=== PATIENT | female | born 1955 | race Hispanic/Latino ===

== ENCOUNTER 2018-08-29 18:12 | Emergency (ER) | payer OTHER ==
[2018-08-29 19:00] LABS: Absolute Lymphocytes (CBC) 4.8 K/uL (0.7-4.9); Absolute Monocytes 0.9 K/uL (0.1-1.3); Absolute Neutrophil 5.6 K/uL (1.8-8.0); Basophils % 0.5 % (0-1.3); Eosinophils % 0.6 % (0-4.4); Hematocrit 36.9 % (36.0-45.0); MPV 8.9 fL (7.6-11.3); Monocytes % 7.5 % (3.3-12.3); RBC Red Blood Cell Count 4.07 M/uL (3.86-4.86)
[2018-08-29 19:19] LABS: Protime INR 1.04
[2018-08-29 19:30] LABS: ALT/SGPT 24 U/L (12-78); AST/SGOT 14 U/L (15-37); Albumin 3.6 g/dL (3.4-5.0); Alkaline Phosphatase 84 U/L (45-117); BUN Blood Urea Nitrogen 17 mg/dL (7-18); Bicarbonate 24 mmol/L (21-32); Bilirubin Direct < 0.1 mg/dL (0-0.2); Bilirubin Total 0.2 mg/dL (0.2-1.0); Glucose Level 120 mg/dL (74-106); Magnesium 2.2 mg/dL (1.8-2.4); NT PRO-BNP 11 pg/mL (<125); Potassium 3.6 mmol/L (3.5-5.1); Protein, Total 7.5 g/dL (6.4-8.2); Sodium Level 141 mmol/L (136-145); Troponin (Emerg Dept Use Only) < 0.02 ng/mL (0.0-0.045)
[2018-08-29] MEDS ORDERED: KETOROLAC 30 MG/ML INJ ONE (21:04)
--- NOTE | 2018-08-29 21:38 | ER ---
Nurse's Notes [facility] Name: Charisse Tarango Age: 63 yrs Sex: Female : 1955 Arrival Date: 08/29/2018 Time: 18:16 Bed 24 Private MD: Diagnosis: Cough;Other chest pain Presentation: 08/29 18:31 Presenting complaint: Patient states: being treated for Bronchitis for the last week, tl3 just finished Zithromax. Chest pain on the right with deep breathing and frequent coughs. Transition of care: patient was not received from another setting of care. Onset of symptoms was August 2018. Risk Assessment: Do you want to hurt yourself or someone else? Patient reports no desire to harm self or others. Initial Sepsis Screen: Does the patient meet any 2 criteria? No. Patient's initial sepsis screen is negative. Does the patient have a suspected source of infection? No. Patient's initial sepsis screen is negative. Care prior to arrival: None. 18:31 Method Of Arrival: Ambulatory tl3 18:31 Acuity: SANDRA 3 tl3 Triage Assessment: 18:36 General: Appears in no apparent distress. comfortable, well groomed, well developed, tl3 well nourished, Behavior is calm, cooperative, appropriate for age. Pain: Complains of pain in anterior aspect of right upper chest and right breast. EENT: No signs and/or symptoms were reported regarding the EENT system. Neuro: Level of Consciousness is awake, alert, obeys commands, Oriented to person, place, time, situation, Appropriate for age. Cardiovascular: No deficits noted. Patient's skin is warm and dry. Rhythm is sinus rhythm. Respiratory: Airway is patent Respiratory effort is even, unlabored, Respiratory pattern is regular, symmetrical. GI: No deficits noted. : No deficits noted. Derm: No deficits noted. Musculoskeletal: No deficits noted. Historical: - Allergies: 18:36 PENICILLINS; tl3 18:36 Codeine; tl3 - Home Meds: 18:36 Calcium Antacid oral oral [Active]; Lisinopril Oral 1 tab once daily [Active]; tl3 fluticasone topical topical [Active]; fluticasone 50 mcg/actuation nasal spsn 2 sprays once daily [Active]; cetirizine 10 mg oral tab once daily [Active]; azelastine 0.15 % (205.5 mcg) nasal spry 1 spray 2 times per day [Active]; Singulair 10 mg Oral tab 1 tab once daily [Active]; - PMHx: 18:36 Hypertension; tl3 - Immunization history:: Adult Immunizations up to date. - Social history:: Smoking status: Patient/guardian denies using tobacco, never smoked. - Ebola Screening: : No symptoms or risks identified at this time. Screenin:39 Abuse screen: Denies threats or abuse. Nutritional screening: No deficits noted. tl3 Tuberculosis screening: No symptoms or risk factors identified. Fall Risk None identified. Assessment: 18:39 Reassessment: No changes from previously documented assessment. tl3 22:23 Reassessment: Patient appears in no apparent distress at this time. Patient and/or tl3 family updated on plan of care and expected duration. Pain level reassessed. Patient is alert, oriented x 3, equal unlabored respirations, skin warm/dry/pink. 22:29 Pain: Pain does not radiate. Pain began gradually. tl3 Vital Signs: 18:36 BP 155 / 75; Pulse 73; Resp 16; Temp 98.3(O); Pulse Ox 100% on R/A; tl3 22:23 BP 134 / 65; Pulse 66; Resp 18; Pulse Ox 100% on R/A; tl3 ED Course: 18:16 Patient arrived in ED. mr 18:21 Colt Hernandez PA is PHCP. cp 18:21 Nicola Ervin MD is Attending Physician. cp 18:21 Billie Del Toro, RN is Primary Nurse. tl3 18:32 Triage completed. tl3 18:36 Arm band placed on right wrist. tl3 18:39 No provider procedures requiring assistance completed. Patient maintains SpO2 tl3 saturation greater than 95% on room air. 18:56 Basic Metabolic Panel Sent. tl3 18:56 D-Dimer Sent. tl3 18:56 CBC with Diff Sent. tl3 18:56 LFT's Sent. tl3 18:56 Magnesium Sent. tl3 18:56 NT PRO-BNP Sent. tl3 18:56 PT-INR Sent. tl3 18:56 Troponin (emerg Dept Use Only) Sent. tl3 18:57 Patient has correct armband on for positive identification. Placed in gown. Bed in low tl3 position. Call light in reach. Side rails up X 1. telemetry monitor on. Pulse ox on. NIBP on. Warm blanket given. 18:57 Initial lab(s) drawn, by me, sent to lab. EKG done, by ED staff. Inserted saline lock: tl3 20 gauge in left forearm, using aseptic technique. Blood collected. 19:16 Alok Bruce MD is Attending Physician. cp 22:20 XRAY Chest Pa And Lat (2 Views) Sent. tl3 22:23 IV discontinued, intact, bleeding controlled, No redness/swelling at site. Pressure tl3 dressing applied. Administered Medications: 21:00 Drug: TORadol 30 mg Route: IVP; Site: right antecubital; tl3 22:29 Follow up: Response: No adverse reaction tl3 22:21 Not Given (pt discharged): Tussionex Pennkinetic ER 5 ml PO once tl3 Outcome: 21:38 Discharge ordered by MD. cp 22:23 Discharged to home ambulatory. tl3 22:23 Condition: stable 22:23 Discharge instructions given to patient, Instructed on discharge instructions, follow up and referral plans. Demonstrated understanding of instructions, follow-up care, medications, Prescriptions given X 3. 22:29 Patient left the ED. tl3 Signatures: Lisandra Hall Corey, PA PA cp Lowrey, Tammy, RN RN tl3
--- NOTE | 2018-08-29 21:39 | EDPHYS ---
Physician Documentation [facility] Name: Charisse Tarango Age: 63 yrs Sex: Female : 1955 Arrival Date: 08/29/2018 Time: 18:16 Bed 24 Private MD: ED Physician Alok Bruce HPI: 08/29 18:40 This 63 yrs old Female presents to ER via Ambulatory with complaints of Chest cp Pain. 18:40 The patient or guardian reports cough. cp 18:40 Onset: The symptoms/episode began/occurred earlier this month. Severity of symptoms: in cp the emergency department the symptoms are unchanged. Associated signs and symptoms: Pertinent positives: chest pain, with cough, with movement, Pertinent negatives: diarrhea, sore throat, vomiting. Patient reports recently finishing RX for Zithromax and medrol dose bryanna. Historical: - Allergies: 18:36 PENICILLINS; tl3 18:36 Codeine; tl3 - Home Meds: 18:36 Calcium Antacid oral oral [Active]; Lisinopril Oral 1 tab once daily [Active]; tl3 fluticasone topical topical [Active]; fluticasone 50 mcg/actuation nasal spsn 2 sprays once daily [Active]; cetirizine 10 mg oral tab once daily [Active]; azelastine 0.15 % (205.5 mcg) nasal spry 1 spray 2 times per day [Active]; Singulair 10 mg Oral tab 1 tab once daily [Active]; - PMHx: 18:36 Hypertension; tl3 - Immunization history:: Adult Immunizations up to date. - Social history:: Smoking status: Patient/guardian denies using tobacco, never smoked. - Ebola Screening: : No symptoms or risks identified at this time. ROS: 18:45 Constitutional: Negative for body aches, chills, fever, poor PO intake. cp 18:45 Eyes: Negative for injury, pain, redness, and discharge. cp 18:45 ENT: Negative for drainage from ear(s), ear pain, sore throat, difficulty swallowing, difficulty handling secretions. 18:45 Cardiovascular: Positive for chest pain, with cough, with movement, Negative for edema, palpitations. 18:45 Respiratory: Positive for cough, Negative for shortness of breath, wheezing. 18:45 Abdomen/GI: Negative for abdominal pain, nausea, vomiting, and diarrhea, black/tarry stool, rectal bleeding. 18:45 Back: Positive for radiated pain, of the right scapular area and right subscapular area, Negative for injury or acute deformity, decreased range of motion. 18:45 : Negative for urinary symptoms. 18:45 Skin: Negative for cellulitis, rash. 18:45 Neuro: Negative for altered mental status, dizziness, headache, syncope, near syncope, weakness. 18:45 All other systems are negative. Exam: 18:30 ECG was reviewed by the Attending Physician. cp 18:50 Constitutional: The patient appears in no acute distress, alert, awake, comfortable, cp non-diaphoretic, non-toxic, well developed, well nourished. 18:50 Head/Face: Normocephalic, atraumatic. cp 18:50 Eyes: Pupils equal round and reactive to light, extra-ocular motions intact. Lids and cp lashes normal. Conjunctiva and sclera are non-icteric and not injected. Cornea within normal limits. Periorbital areas with no swelling, redness, or edema. ENT: Nares patent. No nasal discharge, no septal abnormalities noted. Tympanic membranes are normal and external auditory canals are clear. Oropharynx with no redness, swelling, or masses, exudates, or evidence of obstruction, uvula midline. Mucous membranes moist. Neck: Trachea midline, no thyromegaly or masses palpated, and no cervical lymphadenopathy. Supple, full range of motion without nuchal rigidity, or vertebral point tenderness. No Meningismus. 18:50 Chest/axilla: Inspection: normal, Palpation: crepitus, is not appreciated, tenderness, that is mild, of the anterior aspect of right upper chest, that partially reproduces the patient's complaints. 18:50 Cardiovascular: Rate: normal, Rhythm: regular, Heart sounds: murmur, not appreciated, rub, not appreciated, gallop, not appreciated, Edema: is not appreciated, JVD: is not appreciated. 18:50 Respiratory: the patient does not display signs of respiratory distress, Respirations: normal, no use of accessory muscles, no retractions, no splinting, no tachypnea, labored breathing, is not present, Breath sounds: are clear throughout, no decreased breath sounds, no stridor, no wheezing. 18:50 Abdomen/GI: Inspection: abdomen appears normal, Bowel sounds: active, all quadrants, Palpation: abdomen is soft and non-tender, in all quadrants, rebound tenderness, is not appreciated, voluntary guarding, is not appreciated, involuntary guarding, is not appreciated. 18:50 Back: pain, that is mild, of the right scapular area and right subscapular area, ROM is normal. 18:50 Skin: cellulitis, is not appreciated, no rash present. 18:50 Neuro: Orientation: to person, place \T\ time. Mentation: is normal, Cerebellar function: is grossly normal, Motor: moves all fours, strength is normal, Sensation: is normal. Vital Signs: 18:36 BP 155 / 75; Pulse 73; Resp 16; Temp 98.3(O); Pulse Ox 100% on R/A; tl3 22:23 BP 134 / 65; Pulse 66; Resp 18; Pulse Ox 100% on R/A; tl3 MDM: 18:21 Patient medically screened. cp 19:00 Differential Diagnosis: Bronchitis Influenza Viral Syndrome Pneumonia Other acute OK, cp angina, pulmonary embolism. 21:37 Data reviewed: vital signs, nurses notes, lab test result(s), EKG, radiologic studies, cp plain films. 21:37 Test interpretation: by ED physician or midlevel provider: ECG, plain radiologic cp studies. Counseling: I had a detailed discussion with the patient and/or guardian regarding: the historical points, exam findings, and any diagnostic results supporting the discharge/admit diagnosis, lab results, radiology results, the need for outpatient follow up, a family practitioner, to return to the emergency department if symptoms worsen or persist or if there are any questions or concerns that arise at home. Special discussion: Based on the patient's history, exam, and Dx evaluation, there is no indication for emergent intervention or inpatient Tx. It is understood by the patient/guardian that if the Sx's persist or worsen they need to return immediately for re-evaluation. 08/29 18:37 Order name: Basic Metabolic Panel cp 08/29 18:37 Order name: CBC with Diff cp 08/29 18:37 Order name: LFT's cp 08/29 18:37 Order name: Magnesium cp 08/29 18:37 Order name: NT PRO-BNP cp 08/29 18:37 Order name: PT-INR cp 08/29 18:37 Order name: Troponin (emerg Dept Use Only) cp 08/29 18:37 Order name: D-Dimer cp 08/29 19:07 Order name: CBC with Automated Diff; Complete Time: 19:44 EDMS 08/29 20:19 Interpretation: Normal except: WBC 11.4. cp 08/29 19:31 Order name: Basic Metabolic Panel; Complete Time: 19:44 EDMS 08/29 20:19 Interpretation: Normal except: CL 108; GLUC 120; GFR 67. cp 08/29 19:31 Order name: Liver (Hepatic) Function; Complete Time: 19:44 EDMS 20 20:20 Interpretation: Normal except: AST 14; GLOB 3.9; A/G 0.9. cp 08/29 19:31 Order name: Troponin (Emerg Dept Use Only); Complete Time: 19:44 EDMS 08/29 20:20 Interpretation: Within normal limits: TROPED < 0.02. cp 08/29 19:31 Order name: NT PRO-BNP; Complete Time: 19:44 EDMS 08/29 19:31 Order name: Magnesium; Complete Time: 19:44 EDMS 08/29 18:37 Order name: EKG; Complete Time: 18:39 cp 08/29 18:37 Order name: Cardiac monitoring; Complete Time: 18:40 cp 08/29 18:37 Order name: EKG - Nurse/Tech; Complete Time: 18:40 cp 08/29 18:37 Order name: IV Saline Lock; Complete Time: 18:57 cp 08/29 18:37 Order name: Labs collected and sent; Complete Time: 18:57 cp 08/29 18:37 Order name: O2 Per Protocol; Complete Time: 18:40 cp 08/29 18:37 Order name: O2 Sat Monitoring; Complete Time: 18:40 cp 08/29 20:04 Order name: Protime (+INR); Complete Time: 20:11 EDMS 08/29 20:04 Order name: D-Dimer; Complete Time: 20:11 EDMS 08/29 20:11 Order name: XRAY Chest Pa And Lat (2 Views) cp 08/29 22:08 Order name: RAD EDMS EC:30 Rate is 73 beats/min. Rhythm is regular. NC interval is normal. QRS interval is normal. cp QT interval is normal. Interpreted by me. Reviewed by me. Administered Medications: 21:00 Drug: TORadol 30 mg Route: IVP; Site: right antecubital; tl3 22:29 Follow up: Response: No adverse reaction tl3 22:21 Not Given (pt discharged): Tussionex Pennkinetic ER 5 ml PO once tl3 Disposition: 08/29/18 21:38 Discharged to Home. Impression: Cough, Other chest pain. - Condition is Stable. - Discharge Instructions: Nonspecific Chest Pain, Cough, Adult. - Prescriptions for Tessalon Perles 100 mg Oral Capsule - take 2 capsule by ORAL route every 8 hours As needed; 30 capsule. Prednisone 20 mg Oral Tablet - take 2 tablet by ORAL route once daily for 5 days; 10 tablet. Albuterol Sulfate 90 mcg/actuation - inhale 1-2 puff by INHALATION route every 4-6 hours; 1 Inhaler. - Medication Reconciliation Form, Thank You Letter, Antibiotic Education, Prescription Opioid Use form. - Follow up: Private Physician; When: 2 - 3 days; Reason: Recheck today's complaints. - Problem is new. - Symptoms have improved. Signatures: Dispatcher [employer] EDMS Colt Hernandez PA PA cp Lowrey, Tammy RN RN tl3 Corrections: (The following items were deleted from the chart) 22:24 08/28 18:50 Constitutional: The patient appears in no acute distress, alert, awake, cp non-diaphoretic, non-toxic, well developed, well nourished, cp 08/29 22:24 08/28 18:50 Head/Face: Normocephalic, atraumatic. Eyes: Pupils equal round and reactive cp to light, extra-ocular motions intact. Lids and lashes normal. Conjunctiva and sclera are non-icteric and not injected. Cornea within normal limits. Periorbital areas with no swelling, redness, or edema. ENT: Nares patent. No nasal discharge, no septal abnormalities noted. Tympanic membranes are normal and external auditory canals are clear. Oropharynx with no redness, swelling, or masses, exudates, or evidence of obstruction, uvula midline. Mucous membranes moist. Neck: Trachea midline, no thyromegaly or masses palpated, and no cervical lymphadenopathy. Supple, full range of motion without nuchal rigidity, or vertebral point tenderness. No Meningismus. cp 08/29 21:08/28 18:50 Chest/axilla: Inspection: normal, Palpation: crepitus, is not appreciated, cp tenderness, that is mild, of the anterior aspect of right upper chest, cp 08/29 22:08/28 18:50 Cardiovascular: Rate: normal, Rhythm: regular, Pulses: Pulses are 2+ in cp right radial artery and left radial artery. Edema: is not appreciated, JVD: is not appreciated, cp 08/29 21:08/28 18:50 Respiratory: the patient does not display signs of respiratory distress, cp Respirations: normal, no use of accessory muscles, no retractions, no splinting, no tachypnea, labored breathing, is not present, Breath sounds: bronchial sounds, are not appreciated, decreased breath sounds, are not appreciated, stridor, is not appreciated, wheezing: is not appreciated, cp 08/29 22:08/28 18:50 Abdomen/GI: Inspection: abdomen appears normal, Bowel sounds: active, all cp quadrants, Palpation: abdomen is soft and non-tender, in all quadrants, rebound tenderness, is not appreciated, involuntary guarding, is not appreciated, cp 08/29 21:08/28 18:50 Back: pain, that is mild, of the right scapular area and right subscapular cp area, cp 08/29 21:08/28 18:50 Skin: cellulitis, is not appreciated, no rash present. cp cp 08/29 21:08/28 18:50 Neuro: Orientation: to person, place \T\ time. Mentation: is normal, cp Cerebellar function: is grossly normal, Motor: moves all fours, strength is normal, Sensation: is normal, cp 08/29 21:08/28 18:50 Musculoskeletal/extremity: DVT Exam: No signs of deep vein thrombosis. cp 08/29 22:29 21:38 08/29/2018 21:38 Discharged to Home. Impression: Cough; Other chest pain. tl3 Condition is Stable. Forms are Medication Reconciliation Form, Thank You Letter, Antibiotic Education, Prescription Opioid Use. Follow up: Private Physician; When: 2 - 3 days; Reason: Recheck today's complaints. Problem is new. Symptoms have improved. cp
--- NOTE | 2018-08-29 22:07 | RAD REPORT ---
EXAM DESCRIPTION: RAD - Chest Pa And Lat (2 Views) - 08/29/2018 9:50 pm CLINICAL HISTORY: Bronchitis, chest pain COMPARISON: None. TECHNIQUE: PA and lateral views of the chest were obtained. FINDINGS: The lungs are fibrotic as a baseline. Right perihilar granuloma seen. No peripheral consol idation, mass or failure finding. Heart size is normal and central vasculature is within normal royal its. No pleural effusion or pneumothorax seen. No acute bony finding noted. No aortic abnormality. IMPRESSION: Prominent interstitial markings consistent with fibrosis. A minimal interstitial infiltr ate could be masked.
--- NOTE | 2018-08-30 11:46 | EKG ---
Test Date: 2018-08-29 Test Time: 18:23:12 [place]: MG MEASUREMENT RESULTS: Intervals: Rate: 73 MS: 124 QRSD: 84 QT: 388 QTc: 427 [place]: P: 60 MS: 124 QRS: 43 T: 61 INTERPRETIVE STATEMENTS: Normal sinus rhythm Normal ECG No previous ECG available for comparison Electronically Signed On 08-30-18 11:43:04 CERTIFIED WELDER by Manjit Pond
== END 2018-08-29 22:29 | disposition home or self-care (01) ==
LOC: ER 18:12
DX: R07.89 Other chest pain (principal); I10 Essential (primary) hypertension; Z88.0 Allergy status to penicillin; Z88.5 Allergy status to narcotic agent
CPT/HCPCS: 36415; 71046; 80048; 80076; 83735; 83880; 84484; 85025; 85379; 85610; 93005

== ENCOUNTER 2018-12-29 14:16 | Emergency (ER) | payer OTHER ==
--- NOTE | 2018-12-29 15:09 | RAD REPORT ---
EXAM DESCRIPTION: RAD - Chest Single View - 12/29/2018 2:54 pm CLINICAL HISTORY: CHEST PAIN Chest pain. COMPARISON: Chest Pa And Lat (2 Views) dated 08/29/2018 FINDINGS: Portable technique limits examination quality. The lungs are grossly clear. The heart is normal in size. No displaced fractures. IMPRESSION: No acute intrathoracic process suspected.
[2018-12-29 15:15] LABS: Absolute Lymphocytes (CBC) 2.3 K/uL (0.7-4.9); Absolute Monocytes 0.6 K/uL (0.1-1.3); Absolute Neutrophil 7.9 K/uL (1.8-8.0); Basophils % 0.4 % (0-1.3); Eosinophils % 0.4 % (0-4.4); Hematocrit 36.8 % (36.0-45.0); Lymphocytes % 20.9 % (15.3-44.8); Monocytes % 5.7 % (3.3-12.3); RBC Red Blood Cell Count 4.03 M/uL (3.86-4.86)
[2018-12-29 15:17] LABS: Protime INR 1.01
[2018-12-29 15:40] LABS: ALT/SGPT 23 U/L (12-78); AST/SGOT 18 U/L (15-37); Albumin 4.1 g/dL (3.4-5.0); Alkaline Phosphatase 97 U/L (45-117); BUN Blood Urea Nitrogen 12 mg/dL (7-18); Bicarbonate 26 mmol/L (21-32); Bilirubin Direct 0.1 mg/dL (0-0.2); Bilirubin Total 0.3 mg/dL (0.2-1.0); Glucose Level 105 mg/dL (74-106); Magnesium 2.5 mg/dL (1.8-2.4); NT PRO-BNP 43 pg/mL (<125); Potassium 3.7 mmol/L (3.5-5.1); Protein, Total 7.8 g/dL (6.4-8.2); Sodium Level 140 mmol/L (136-145); Troponin (Emerg Dept Use Only) < 0.02 ng/mL (0.0-0.045)
[2018-12-29] MEDS ORDERED: MORPHINE 4 MG/ML SYR ONE (15:51)
[2018-12-29] MEDS ORDERED: ONDANSETRON 4 MG/2 ML VIAL ONE (15:51)
--- NOTE | 2018-12-29 19:57 | EDPHYS ---
Physician Documentation [facility] Name: Charisse Tarango Age: 63 yrs Sex: Female : 1955 Arrival Date: 12/29/2018 Time: 14:21 Bed 5 Private MD: ED Physician Israel Flynn HPI: 12/29 15:03 This 63 yrs old Female presents to ER via Ambulatory with complaints of Arm pm1 Pain, Neck Problem. 15:03 The patient or guardian complains of pain, that is acute. The complaints affect the pm1 anterior aspect of left upper chest and left side of neck. Context: The problem was sustained at home, resulted from possibly working on laundry. Onset: The symptoms/episode began/occurred today, 1 hour prior to arrival. Treatment prior to arrival includes: no previous treatment. Modifying factors: The symptoms are alleviated by remaining still, the symptoms are aggravated by moving left arm and head. Associated signs and symptoms: Pertinent negatives: decreased range of motion, deformity, fever, numbness, swelling, tingling. Severity of symptoms: in the emergency department the symptoms are unchanged. The patient has not experienced similar symptoms in the past. The patient has not recently seen a physician. Historical: - Allergies: 14:32 Codeine; hb 14:32 PENICILLINS; hb - Home Meds: 14:32 azelastine 0.15 % (205.5 mcg) nasal spry 1 spray 2 times per day [Active]; Calcium hb Antacid Oral [Active]; fluticasone 50 mcg/actuation nasal spsn 2 sprays once daily [Active]; lisinopril Oral 1 tab once daily [Active]; Singulair 10 mg Oral tab 1 tab once daily [Active]; Omeprazole Oral [Active]; - PMHx: 14:32 Hypertension; hb - PSHx: 14:32 Hysterectomy; neck; hb - Immunization history:: Adult Immunizations up to date. - Social history:: Smoking status: Patient/guardian denies using tobacco. - Ebola Screening: : No symptoms or risks identified at this time. ROS: 15:03 Constitutional: Negative for fever, chills, and weight loss, Eyes: Negative for injury, pm1 pain, redness, and discharge, ENT: Negative for injury, pain, and discharge, Respiratory: Negative for shortness of breath, cough, wheezing, and pleuritic chest pain. 15:03 Abdomen/GI: Negative for abdominal pain, nausea, vomiting, diarrhea, and constipation, Back: Negative for injury and pain. 15:03 : Negative for injury, bleeding, discharge, and swelling, MS/Extremity: Negative for injury and deformity, Skin: Negative for injury, rash, and discoloration, Neuro: Negative for headache, weakness, numbness, tingling, and seizure. 15:03 Neck: Positive for tenderness, of the left trapezius. 15:03 Cardiovascular: Positive for chest pain, Negative for edema, orthopnea, palpitations. Exam: 19:00 Constitutional: This is a well developed, well nourished patient who is awake, alert, pm1 and in no acute distress. Head/Face: Normocephalic, atraumatic. Eyes: Pupils equal round and reactive to light, extra-ocular motions intact. Lids and lashes normal. Conjunctiva and sclera are non-icteric and not injected. Cornea within normal limits. Periorbital areas with no swelling, redness, or edema. ENT: Nares patent. No nasal discharge, no septal abnormalities noted. Tympanic membranes are normal and external auditory canals are clear. Oropharynx with no redness, swelling, or masses, exudates, or evidence of obstruction, uvula midline. Mucous membranes moist. 19:00 Cardiovascular: Regular rate and rhythm with a normal S1 and S2. No gallops, murmurs, or rubs. Normal PMI, no JVD. No pulse deficits. Respiratory: Lungs have equal breath sounds bilaterally, clear to auscultation and percussion. No rales, rhonchi or wheezes noted. No increased work of breathing, no retractions or nasal flaring. Abdomen/GI: Soft, non-tender, with normal bowel sounds. No distension or tympany. No guarding or rebound. No evidence of tenderness throughout. Back: No spinal tenderness. No costovertebral tenderness. Full range of motion. Skin: Warm, dry with normal turgor. Normal color with no rashes, no lesions, and no evidence of cellulitis. MS/ Extremity: Pulses equal, no cyanosis. Neurovascular intact. Full, normal range of motion. 19:00 Neck: External neck: tenderness, of the left trapezius, C-spine: vertebral tenderness, is not appreciated. 19:00 Chest/axilla: Inspection: normal, Palpation: tenderness, of the anterior aspect of left upper chest, that totally reproduces the patient's complaints, reproduced with movement to left arm. 19:00 Neuro: Orientation: is normal, Motor: is normal, moves all fours. Vital Signs: 14:31 BP 165 / 75; Pulse 88; Resp 16; Temp 97.4; Pulse Ox 96% on R/A; Weight 64.86 kg; Height hb 4 ft. 11 in. (149.86 cm); Pain 10/10; 16:07 BP 142 / 71; Pulse 70 AP; Resp 18; Pulse Ox 97% on R/A; ph 17:00 BP 127 / 59; Pulse 65; Resp 18; Pulse Ox 97% on R/A; Pain 6/10; ph 17:47 BP 131 / 63; Pulse 61; Resp 18; Pulse Ox 97% on R/A; ph 18:49 BP 146 / 72; Pulse 63; Resp 18; Pulse Ox 98% on R/A; ph 19:28 BP 128 / 63; Pulse 66; Resp 16; Temp 98.1; Pulse Ox 97% on R/A; Pain 0/10; ak1 20:10 BP 129 / 67; Pulse 64; Resp 16 S; Temp 98(O); Pulse Ox 97% on R/A; Pain 0/10; cc3 14:31 Body Mass Index 28.88 (64.86 kg, 149.86 cm) hb MDM: 14:39 Patient medically screened. pm1 19:54 Data reviewed: vital signs. Data interpreted: Pulse oximetry: on room air is 97 %. pm1 Interpretation: normal. 19:54 ED course: Normal ECG. Two negative troponin greater than 4 hours apart. Patient with pm1 left sided chest pain that is reproducible with palpation and movement of left arm. Will discharge the patient home to follow up with PCP. 19:54 Counseling: I had a detailed discussion with the patient and/or guardian regarding: the pm1 historical points, exam findings, and any diagnostic results supporting the discharge/admit diagnosis, lab results, radiology results, the need for outpatient follow up, to return to the emergency department if symptoms worsen or persist or if there are any questions or concerns that arise at home. 12/29 14:39 Order name: Basic Metabolic Panel; Complete Time: 15:50 pm1 12/29 14:39 Order name: CBC with Diff; Complete Time: 15:37 pm12/29 14:39 Order name: LFT's; Complete Time: 15:50 pm12/29 14:39 Order name: Magnesium; Complete Time: 15:50 pm12/29 14:39 Order name: NT PRO-BNP; Complete Time: 15:50 pm12/29 14:39 Order name: PT-INR; Complete Time: 15:37 pm12/29 14:39 Order name: Troponin (emerg Dept Use Only); Complete Time: 15:50 pm1 12/29 14:39 Order name: XRAY Chest (1 view); Complete Time: 15:37 pm12/29 14:39 Order name: EKG; Complete Time: 14:41 pm12/29 14:39 Order name: Cardiac monitoring; Complete Time: 15:24 pm12/29 14:39 Order name: EKG - Nurse/Tech; Complete Time: 15:24 pm12/29 19:15 Order name: Troponin (emerg Dept Use Only); Complete Time: 19:54 ak1 12/29 14:39 Order name: IV Saline Lock; Complete Time: 15:24 pm12/29 14:39 Order name: Labs collected and sent; Complete Time: 15:25 pm12/29 14:39 Order name: O2 Per Protocol; Complete Time: 15:25 pm12/29 14:39 Order name: O2 Sat Monitoring; Complete Time: 15:25 pm1 EC:08 Rate is 76 beats/min. Rhythm is regular. No ST changes noted. Clinical impression: pm1 Normal ECG. Administered Medications: 16:00 Drug: Zofran 4 mg Route: IVP; Site: right antecubital; ph 16:30 Follow up: Response: No adverse reaction; Vomiting decreased ph 16:03 Drug: morphine 4 mg Route: IVP; Site: right antecubital; ph 16:30 Follow up: Response: No adverse reaction; Pain is decreased ph Disposition: 12/29/18 19:56 Discharged to Home. Impression: Chest pain, unspecified. - Condition is Stable. - Discharge Instructions: Nonspecific Chest Pain. - Prescriptions for Naprosyn 500 mg Oral Tablet - take 1 tablet by ORAL route 2 times per day take with food; 30 tablet. Cyclobenzaprine 10 mg Oral Tablet - take 1 tablet by ORAL route every 8 hours As needed; 30 tablet. - Medication Reconciliation Form, Thank You Letter, Antibiotic Education, Prescription Opioid Use form. - Follow up: Emergency Department; When: As needed; Reason: Worsening of condition. Follow up: Private Physician; When: 2 - 3 days; Reason: Recheck today's complaints, Continuance of care, Re-evaluation by your physician. - Problem is new. - Symptoms have improved. Signatures: Dispatcher [employer] EDTN Rosario Ni RN RN ph Luan Arango, HEAVY DUTY CUSTODIAN HEAVY DUTY CUSTODIAN pm1 Michelle Maria RN RN Dannielle Whitney cc3 Corrections: (The following items were deleted from the chart) 20:21 19:56 12/29/2018 19:56 Discharged to Home. Impression: Chest pain, unspecified. cc3 Condition is Stable. Forms are Medication Reconciliation Form, Thank You Letter, Antibiotic Education, Prescription Opioid Use. Follow up: Emergency Department; When: As needed; Reason: Worsening of condition. Follow up: Private Physician; When: 2 - 3 days; Reason: Recheck today's complaints, Continuance of care, Re-evaluation by your physician. Problem is new. Symptoms have improved. pm1
--- NOTE | 2018-12-29 19:57 | ER ---
Nurse's Notes [facility] Name: Charisse Tarango Age: 63 yrs Sex: Female : 1955 Arrival Date: 12/29/2018 Time: 14:21 Bed 5 Private MD: Diagnosis: Chest pain, unspecified Presentation: 12/29 14:30 Presenting complaint: Left sided neck and left arm pain that began while doing laundry hb today. 14:30 Method Of Arrival: Ambulatory hb 14:30 Transition of care: patient was not received from another setting of care. Acute hb neurological deficit: none identified. Onset of symptoms was December 29, 2018. Risk Assessment: Do you want to hurt yourself or someone else? Patient reports no desire to harm self or others. Initial Sepsis Screen: Does the patient meet any 2 criteria? No. Patient's initial sepsis screen is negative. Does the patient have a suspected source of infection? No. Patient's initial sepsis screen is negative. Care prior to arrival: None. 14:30 Acuity: SANDRA 3 hb Historical: - Allergies: 14:32 Codeine; hb 14:32 PENICILLINS; hb - Home Meds: 14:32 azelastine 0.15 % (205.5 mcg) nasal spry 1 spray 2 times per day [Active]; Calcium hb Antacid Oral [Active]; fluticasone 50 mcg/actuation nasal spsn 2 sprays once daily [Active]; lisinopril Oral 1 tab once daily [Active]; Singulair 10 mg Oral tab 1 tab once daily [Active]; Omeprazole Oral [Active]; - PMHx: 14:32 Hypertension; hb - PSHx: 14:32 Hysterectomy; neck; hb - Immunization history:: Adult Immunizations up to date. - Social history:: Smoking status: Patient/guardian denies using tobacco. - Ebola Screening: : No symptoms or risks identified at this time. Screenin:07 Abuse screen: Denies threats or abuse. Denies injuries from another. Nutritional ph screening: No deficits noted. Tuberculosis screening: No symptoms or risk factors identified. Fall Risk None identified. Assessment: 15:00 General: Appears in no apparent distress. comfortable, well groomed, Behavior is calm, ph cooperative, appropriate for age. Pain: Complains of pain in anterior aspect of left upper chest Pain radiates to left arm and left side of neck Aggravated by repositioning. Neuro: Level of Consciousness is awake, alert, obeys commands, Oriented to person, place, time, situation, Reports dizziness, Denies weakness headache. Cardiovascular: Reports chest pain, lightheadedness, nausea, Capillary refill < 3 seconds in bilateral fingers Chest pain is located in left anterior chest wall radiates to left arm(s) neck is aggravated by activity. Respiratory: Airway is patent Respiratory effort is even, unlabored, Respiratory pattern is regular, symmetrical. GI: Reports nausea, Patient currently denies abdominal pain, diarrhea, vomiting. Derm: Skin is intact, is healthy with good turgor, Skin is pink, warm \T\ dry. Musculoskeletal: Circulation, motion, and sensation intact. Range of motion: intact in all extremities. 16:03 Reassessment: Patient appears in no apparent distress at this time. Patient and/or ph family updated on plan of care and expected duration. Pain level reassessed. Patient is alert, oriented x 3, equal unlabored respirations, skin warm/dry/pink. 17:00 Reassessment: Patient appears in no apparent distress at this time. Patient and/or ph family updated on plan of care and expected duration. Pain level reassessed. Patient is alert, oriented x 3, equal unlabored respirations, skin warm/dry/pink. Pt resting quietly, reports that pain has improved to 5/10 and denies nausea, VSS, will continue to monitor. 18:00 Reassessment: Patient appears in no apparent distress at this time. No changes from ph previously documented assessment. Patient and/or family updated on plan of care and expected duration. Pain level reassessed. Patient is alert, oriented x 3, equal unlabored respirations, skin warm/dry/pink. 19:25 General: Appears in no apparent distress. comfortable, Behavior is calm, cooperative, ak1 appropriate for age. Neuro: Level of Consciousness is awake, alert, obeys commands, Oriented to person, place, time, situation, Packaging Machine Operator are equal bilaterally Moves all extremities. Gait is steady, pt with steady gait to ER restroom. . Speech is normal, Facial symmetry appears normal. Cardiovascular: Denies chest pain. Respiratory: No deficits noted. GI: No signs and/or symptoms were reported involving the gastrointestinal system. : No signs and/or symptoms were reported regarding the genitourinary system. EENT: No signs and/or symptoms were reported regarding the EENT system. 20:15 Reassessment: Patient appears in no apparent distress at this time. Patient and/or cc3 family updated on plan of care and expected duration. Pain level reassessed. Patient is alert, oriented x 3, equal unlabored respirations, skin warm/dry/pink. PEG Arango discharged the patient home with prescription given. IV cannula removed and patient left ER vitally stable and ambulatory and said her relatives are waiting for her outside. Patient denies pain at this time. Patient states feeling better. Patient states symptoms have improved. Vital Signs: 14:31 BP 165 / 75; Pulse 88; Resp 16; Temp 97.4; Pulse Ox 96% on R/A; Weight 64.86 kg; Height hb 4 ft. 11 in. (149.86 cm); Pain 10/10; 16:07 BP 142 / 71; Pulse 70 AP; Resp 18; Pulse Ox 97% on R/A; ph 17:00 BP 127 / 59; Pulse 65; Resp 18; Pulse Ox 97% on R/A; Pain 6/10; ph 17:47 BP 131 / 63; Pulse 61; Resp 18; Pulse Ox 97% on R/A; ph 18:49 BP 146 / 72; Pulse 63; Resp 18; Pulse Ox 98% on R/A; ph 19:28 BP 128 / 63; Pulse 66; Resp 16; Temp 98.1; Pulse Ox 97% on R/A; Pain 0/10; ak1 20:10 BP 129 / 67; Pulse 64; Resp 16 S; Temp 98(O); Pulse Ox 97% on R/A; Pain 0/10; cc3 14:31 Body Mass Index 28.88 (64.86 kg, 149.86 cm) hb ED Course: 14:21 Patient arrived in ED. mr 14:30 Triage completed. hb 14:31 Arm band placed on. hb 14:37 Luan Arango NP is PHCP. pm1 14:37 Israel Flynn MD is Attending Physician. pm1 14:50 Rosario Ni, RN is Primary Nurse. ph 14:52 X-ray completed. Portable x-ray completed in exam room. Patient tolerated procedure sw well. 14:53 XRAY Chest (1 view) In Process Unspecified. EDCO 14:56 EKG done, by chemistry laboratory technician. reviewed by Luan Arango NP. at1 15:15 Inserted saline lock: 22 gauge in right antecubital area, using aseptic technique. ph Blood collected. 16:11 Patient has correct armband on for positive identification. Placed in gown. Bed in low ph position. Call light in reach. Side rails up X2. environmental monitoring specialist on. Pulse ox on. NIBP on. Door closed. Noise minimized. Warm blanket given. 17:47 No provider procedures requiring assistance completed. ph 19:30 Primary Nurse role handed off by Rosario Ni RN ak1 19:30 Michelle Tong, DARRYL is Primary Nurse. ak1 20:15 IV discontinued, intact, bleeding controlled, No redness/swelling at site. Pressure cc3 dressing applied. Administered Medications: 16:00 Drug: Zofran 4 mg Route: IVP; Site: right antecubital; ph 16:30 Follow up: Response: No adverse reaction; Vomiting decreased ph 16:03 Drug: morphine 4 mg Route: IVP; Site: right antecubital; ph 16:30 Follow up: Response: No adverse reaction; Pain is decreased ph Outcome: 19:56 Discharge ordered by MD. pm1 20:15 Discharged to home ambulatory. cc3 20:15 Condition: stable 20:15 Discharge instructions given to patient, Instructed on discharge instructions, follow up and referral plans. medication usage, Demonstrated understanding of instructions, follow-up care, medications, Prescriptions given X 2. 20:21 Patient left the ED. cc3 Signatures: Dispatcher [employer] EDCO Rafael Lisandra NorwoodAlexandra, second time worker EKG Tat1 Michelle Tong, RN RN ak1 Rosario Ni RN RN ph Bharti Kenney Patrick, NP POLISHER HAND pm1 Michelle Maria RN RN hb Dannielle Whitney cc3 Corrections: (The following items were deleted from the chart) 15:59 14:30 Acuity: SANDRA 4 hb hb 17:47 17:00 BP 131 / 63; Pulse 61bpm; Resp 18bpm; Pulse Ox 97% RA; ph ph
--- NOTE | 2018-12-30 16:34 | EKG ---
Test Date: 2018-12-29 Test Time: 14:56:17 Manager Intermediate: GAGE MEASUREMENT RESULTS: Intervals: Rate: 76 TX: 136 QRSD: 88 QT: 386 QTc: 434 [place]: P: 28 TX: 136 QRS: -22 T: 28 INTERPRETIVE STATEMENTS: Normal sinus rhythm Normal ECG Compared to ECG 08/29/2018 18:23:12 No significant changes Electronically Signed On 12-30-18 16:32:43 CDT by Denis Banks
== END 2018-12-29 20:21 | disposition home or self-care (01) ==
LOC: ER 14:16
DX: R07.9 Chest pain, unspecified (principal); I10 Essential (primary) hypertension; Z88.0 Allergy status to penicillin; Z88.6 Allergy status to analgesic agent
CPT/HCPCS: 93005; 85025; 80048; 36415; 83735; 85610; 80076; 84484 ×2; 83880; 71045; 96375; 96374; 99285; J2405

== ENCOUNTER 2020-03-16 17:44 | Emergency (ER) | payer OTHER ==
--- OUTSIDE RECORDS SUMMARY | 2020-03-16 17:47 | XMS REPORT ---
:1955 Author Organization [employer] Care Team Providers Name Role Phone Kunz, Na Provider Role Unavailable Allergies, Adverse Reactions, Alerts Substance Reaction Event Type codeine nausea and vomiting Drug Allergy Problems Problem Type Condition Code Onset Dates Condition Statu s Problem Essential hypertension I10 Activ e Problem Circulation problem I99.9 Active Problem Ulcer L98.499 Active Problem Intractable migraine with status G43.911 Active migrainosus, unspecified migraine type Assessment PUD (peptic ulcer disease) K27.9 A ctive Problem Non-seasonal allergic rhinitis, J30.89 Active unspecified trigger Assessment Non-seasonal allergic rhinitis, J30.89 Active unspecified trigger Assessment Osteopenia of lumbar spine M85.88 A ctive Problem High triglycerides E78.1 Active Problem Simple chronic bronchitis J41.0 Ac tive Problem Cervical radiculopathy due to M47.22 Active degenerative joint disease of spine Problem Swelling R60.9 Active Problem Varicose veins of bilateral lower I83.813 Active extremities with pain Assessment Essential hypertension I10 Activ e Assessment Right upper quadrant abdominal pain R10.11 Active Assessment High triglycerides E78.1 Active Problem Kidney stones N20.0 Active Problem Reflux K21.9 Active Assessment Simple chronic bronchitis J41.0 Ac tive Problem PUD (peptic ulcer disease) K27.9 A ctive Problem Memory problem R41.3 Active Assessment JOE positive R76.8 Active Problem Sinus problem J34.9 Active Problem Allergic rhinitis J30.9 Active Medications Medication Code Code Instructions Start End Status Dosage System Date Date Hooper 3 [facility] 95852291042 1000 MG Orally Active 1 cap alicia Once a day Montelukast ND 50736353536 10 MG Orally Active 1 t ablet Sodium Once a day Fluticasone ND 02849517854 50 Active USE 2 Propionate SPRAYS IN EACH NOSTRIL EVERY DAY Fluticasone ND 35872716887 50 MCG/ACT Active USE 2 Propionate SPRAYS IN EACH NOSTRIL EVERY DAY Famotidine ND 37159123959 40 MG Orally Active 1 ta blet at Once a day bedtime Clindamycin [facility] [address]-01 150 MG Orally Active 2 capsules HCl every 8 hrs Metoprolol [facility] 29423792980 50 MG Orally Active 1 ta blet Tartrate Twice a day with food HydrOXYzine [facility] 78105738443 25 MG Orally Aug 24, Active 1 t ablet as HCl every 12 hours 2020 needed prn itching Results No Known Results Summary Purpose [employer] Submission
--- OUTSIDE RECORDS SUMMARY | 2020-03-16 17:47 | XMS REPORT | Continuity of Care Document ---
:1955 Author Organization [facility] t Address [address] [place] [address] Care Team Providers Name Role Phone Unavailable Unavailable Unavailable Problems Condition Condition Condition Status Onset Resolution Last Treating Co mments Source Name Details Category Date Date Treatment Clinician Date Simple Simple Problem Active [facility]itis [facility]itis [facility] Swelling Swelling Problem [facility] Varicose Varicose Problem [facility] veins of veins of [facility] - bilateral bilateral Pablo ebony lower lower l extremitie extremitie Ou tpati s with s with ent pain pain Clinics Non-season Non-season Problem Active [facility] - allergic allergic Memori a rhinitis, rhinitis, l unspecifie unspecifie Ou tpati d trigger d trigger ent Clinics Ulcer Ulcer Problem [facility] Circulatio Circulatio Problem Active [facility] problem n problem [facility] Cervical Cervical Problem Active [facility] radiculopa radiculopa Ada kes - thy due to thy due to Me moria degenerati degenerati l ve joint ve joint Outpat i disease of disease of en t spine spine Clinics Allergic Allergic Problem Active [facility] Memory Memory Problem Active [facility] problem problem [facility] Essential Essential Problem Active [facility] hypertensi hypertensi Ada kes - on on [facility] Sinus Sinus Problem Active [facility] problem problem [facility] PUD PUD Problem Active [facility] (peptic (peptic [facility] - ulcer ulcer Memoria disease) disease) l Outpati ent Clinics Reflux Reflux Problem Active [facility] Kidney Kidney Problem Active [facility] stones stones [facility] Intractabl Intractabl Problem Active [facility] e migraine e migraine Ada kes - with with Memoria status status l migrainosu migrainosu Ou tpati s, s, ent unspecifie unspecifie Cl inics d migraine d migraine type type High High Problem Active [facility] triglyceri triglyceri Ada kes - justin justin Memoria [facility] Allergies, Adverse Reactions, Alerts Allergy Allergy Status Severity Reaction(s) Onset Inactive Treating Comm ents Source Name Type Date Date Clinician codeine Adverse Active nausea and [facility] Reaction vomiting [facility] Medications Ordered Filled Start Stop Current Ordering Indication Dosage Frequency Signature Comments Components Source Medication Medication Date Date Medication? Clinician (SIG) Name Name Procto-Med Procto-Med 2020- Yes Na Kunz [address] [facility] HC 01-20 applicatio [facility] - 00:00: 00:00 n Memoria 00 :00 [facility] Lovaza Lovaza 2019- Yes Na Kunz [address] [facility] 5-28 07-02 [facility] - 00:[facility]: 00:00 Memoria 00 :00 [facility] HydrOXYzine HydrOXYzine Yes Na Kunz [address] [facility] HCl HCl 1-15 as needed [facility] - 00:[facility]: [facility] [place] 3 Yes Na Kunz [address] [facility] Montelukast Montelukast Yes Na Kunz [address] [facility] Sodium Sodium [facility] Metoprolol Metoprolol Yes Na Kunz [address] [facility] [address] Tartrate Tartrate with food [facility] Clindamycin Clindamycin Yes Na Kunz [address] HCl HCl [facility] Fluticasone Fluticasone Yes Na Kunz USE [address] [facility] Propionate Propionate SPRAYS IN [place] [facility] - EACH [facility] NOSTRIL l EVERY DAY [facility] Famotidine Famotidine Yes Na Kunz [address] [facility] at bedtime [facility] Immunizations Ordered Filled Immunization Date Status Comments Sourc e Immunization Name Name FluAD FluAD 2019-09-[address] [facility] Procedures This patient has no known procedures. Encounters Start End Encounter Admission Attending Care Care Encounter Source Date/Time Date/Time Type Type Clinicians Facility Department ID 2020-02-27 2020-02-27 [facility] [id number] [facility] 09:10:00 09:10:00 t [facility] Medicine Outpati ent Clinics 2020-01-20 2020-01-20 [facility] [id number] [address] 13:31:00 13:31:00 t [facility] Medicine l Medicine Outpati ent Clinics 2020-01-16 2020-01-16 [facility] [id number] [address] 10:14:00 10:14:[address] [facility] l Medicine Outpati ent Clinics 2020-01-16 2020-01-16 [facility] [id number] 10[facility]11:00 10:11:[address] [facility] l Medicine Outpati ent Clinics 2020-01-04 2020-01-04 [facility] [id number] 16:56:00 16:56:00 t [facility] Medicine Outpati ent Clinics 2020-01-04 2020-01-04 [facility] [id number] [address] 16:00:00 16:00:00 t [employer] KOEZY [facility] l Medicine Outpati ent Clinics 2019-12-21 2019-12-21 [facility] [id number] [address] 08:40:00 08:40:00 t [facility] Medicine l Medicine Outpati ent Clinics 2019-12-05 2019-12-05 [facility] [id number] [address] 11:14:00 11:14:[address] [facility] l Medicine Outpati ent Clinics 2019-11-29 2019-11-29 [facility] [id number] [address] 14:53:00 14:53:00 t [facility] [employer] [facility] Medicine Outpati ent Clinics 2019-11-29 2019-11-29 [facility] [id number] [address] 14:00:00 14:00:[address] [facility] [address] Luke s - Road [facility] Medicine l Medicine Outpati ent Clinics 2019-11-29 2019-11-29 [facility] [id number] [address] 10:09:00 10:09:00 t Specialty/U Ada kes - Specialty rology [facility] a /Urology Clinic l Clinic Outpati ent Clinics 2019-10-06 2019-10-06 [facility] [id number] 15:47:00 15:47:00 t [employer] s - Drive [facility] Medicine l Medicine Outpati ent Clinics 2019-10-06 2019-10-06 [facility] [id number] 15:44:00 15:44:00 t [employer] s - Drive [facility] l Medicine Outpati ent Clinics 2019-09-15 2019-09-15 [facility] [id number] 11:04:00 11:04:00 t [place] [employer] Luke s - Drive [facility] Medicine l Medicine Outpati ent Clinics 2019-09-13 2019-09-13 [facility] [id number] 10:18:00 10:18:00 t [employer] s - Drive [facility] l Medicine Outpati ent Clinics 2019-09-09 2019-09-09 [facility] [id number] 13:40:00 13:40:00 t [place] [employer] s - Drive [facility] Medicine l Medicine Outpati ent Clinics 2019-08-29 2019-08-29 [facility] [id number] 14:10:00 14:10:00 t [employer] s - Drive [facility] Medicine l Medicine Outpati ent Clinics 2019-08-24 2019-08-24 [facility] [id number] 13:34:00 13:34:00 t [employer] s - Drive [facility] l Medicine Outpati ent Clinics 2019-08-23 2019-08-23 [facility] [id number] 16:00:00 16:00:[address] Kris Aguirre [facility] Medicine Outpati ent Clinics Results This patient has no known results.
--- OUTSIDE RECORDS SUMMARY | 2020-03-16 17:47 | XMS REPORT ---
:1955 Author Organization eClinicalWorks Care Team Providers Name Role Phone Kunz, Na Provider Role Unavailable Allergies No Known Allergies Problems Problem Type Condition Code Onset Dates Condition Statu s Problem Essential hypertension I10 Activ e Problem Circulation problem I99.9 Active Problem Ulcer L98.499 Active Problem Intractable migraine with status G43.911 Active migrainosus, unspecified migraine type Problem Non-seasonal allergic rhinitis, J30.89 Active unspecified trigger Problem High triglycerides E78.1 Active Problem Simple chronic bronchitis J41.0 Ac tive Problem Cervical radiculopathy due to M47.22 Active degenerative joint disease of spine Problem Swelling R60.9 Active Problem Varicose veins of bilateral lower I83.813 Active extremities with pain Assessment Essential hypertension I10 Activ e Problem Kidney stones N20.0 Active Problem Reflux K21.9 Active Problem PUD (peptic ulcer disease) K27.9 A ctive Problem Memory problem R41.3 Active Problem Sinus problem J34.9 Active Problem Allergic rhinitis J30.9 Active Medications Medication Code System Code Instructions Start End Date Status Dos age Date [place] 3 [facility] [id number] 1000 MG Orally Active 1 cap alicia Once a day Results No Known Results Summary Purpose eClinicalWorks Submission
--- OUTSIDE RECORDS SUMMARY | 2020-03-16 17:47 | XMS REPORT ---
[...] bilateral lower I83.813 Active extremities with pain Problem Kidney stones N20.0 Active Problem Reflux K21.9 Active Problem PUD (peptic ulcer disease) K27.9 A ctive Problem Memory problem R41.3 Active Problem Sinus problem J34.9 Active Problem Allergic rhinitis J30.9 Active Medications Medication Code Code Instructions Start End Status Dosage System Date Date Montelukast [facility] 52592887626 10 MG Orally Active 1 t ablet Sodium Once a day Metoprolol [facility] 75977799478 50 MG Orally Active 1 ta blet Tartrate Twice a day with food HydrOXYzine HCl ND 32045353915 25 MG Orally Aug 24, Active 1 tablet as every 12 hours 2019 needed prn itching Clindamycin HCl ND 27877970419 150 MG Orally Active 2 capsules every 8 hrs Fluticasone ND 40888929221 50 Active USE 2 Propionate SPRAYS IN EACH NOSTRIL EVERY DAY Fluticasone ND 94841991410 50 MCG/ACT Active USE 2 Propionate SPRAYS IN EACH NOSTRIL EVERY DAY [place] 3 ND 65189858449 1000 MG Orally Active 1 cap alicia Once a day [place] 98438744286 1 GM Orally January 04, Jul 02, Active 2 capsul es Twice a day 2019 2019 Famotidine ND 70898927143 40 MG Orally Active 1 ta blet at Once a day bedtime Results No Known Results Summary Purpose eClinicalWorks Submission
--- OUTSIDE RECORDS SUMMARY | 2020-03-16 17:48 | XMS REPORT ---
[...] Start End Status Dosage System Date Date Metoprolol [facility] 53523385648 50 MG Orally Active 1 ta blet with Tartrate Twice a day food Famotidine ND 05574493778 40 MG Orally Active 1 ta blet at Once a day bedtime Procto-Med HC [facility] 60198431921 2.5 % Rectal January 20February Active 1 application Twice a day prn 2019, hemorroid 2019 irritation Fluticasone ND 12733858795 50 MCG/ACT Active USE 2 SPRAYS Propionate IN EACH NOSTRIL EVERY DAY Clindamycin ND 75047202588 150 MG Orally Active 2 capsules HCl every 8 hrs Fluticasone ND 10994634438 50 Active USE 2 SP RAYS Propionate IN EACH NOSTRIL EVERY DAY [place] 60724125210 1 GM Orally January 04, Jul 02, Active 2 capsul es Twice a day 2019 2019 [place] 3 ND 42170393186 1000 MG Orally Active 1 cap alicia Once a day HydrOXYzine ND 24029157403 25 MG Orally Aug 24, Active 1 t ablet as HCl every 12 hours 2019 needed prn itching Montelukast [facility] 18009379679 10 MG Orally Active 1 t ablet Sodium Once a day Results No Known Results Summary Purpose eClinicalWorks Submission
--- OUTSIDE RECORDS SUMMARY | 2020-03-16 17:48 | XMS REPORT ---
[...] Active Problem Allergic rhinitis J30.9 Active Medications No Known Medications Results No Known Results Summary Purpose eClinicalWorks Submission
--- OUTSIDE RECORDS SUMMARY | 2020-03-16 17:48 | XMS REPORT ---
[...] Assessment Essential hypertension I10 Activ e Assessment High triglycerides E78.1 Active Problem Kidney stones N20.0 Active Problem Reflux K21.9 Active Problem PUD (peptic ulcer disease) K27.9 A ctive Problem Memory problem R41.3 Active Problem Sinus problem J34.9 Active Problem Allergic rhinitis J30.9 Active Medications No Known Medications Results No Known Results Summary Purpose eClinicalWorks Submission
--- OUTSIDE RECORDS SUMMARY | 2020-03-16 17:48 | XMS REPORT ---
[...] lower I83.813 Active extremities with pain Assessment PUD (peptic ulcer disease) K27.9 A ctive Problem Kidney stones N20.0 Active Problem Reflux K21.9 Active Problem PUD (peptic ulcer disease) K27.9 A ctive Problem Memory problem R41.3 Active Problem Sinus problem J34.9 Active Problem Allergic rhinitis J30.9 Active Medications No Known Medications Results No Known Results Summary Purpose eClinicalWorks Submission
--- NOTE | 2020-03-16 18:58 | RAD REPORT ---
EXAM DESCRIPTION: CT - CTHCSPWOC - 03/16/2020 6:43 pm CLINICAL HISTORY: PAINfall, head and neck injury, headache COMPARISON: <Comparisons> TECHNIQUE: Axial 5 mm thick images of the head were obtained. Axial 2 mm thick images of the cervic al spine were obtained with sagittal and coronal reconstruction images generated and reviewed. All CT scans are performed using dose optimization technique as appropriate and may include automated exposure control or mA/KV adjustment according to patient size. FINDINGS: No intracranial hemorrhage, mass, edema or acute intracranial finding. No suspicion for ac [place] infarction. No extra-axial fluid collections. Mastoid air cells and paranasal sinuses are clear. No globe or orbit abnormality seen. Cervical bodies are normal in height. 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 There is a slight anterior s ubluxation of C4 on C5. There is associated endplate spurring and a mild disc bulge. C6-7 disc space is narrowed with associated endplate spurring. No significant central spinal stenosis or significant degree of foraminal stenosis. Multilevel facet joint degenerative changes are present. C6-7 foraminal stenosis present. No disk space narrowing. No fracture or acute bony abnormality. Central canal det ail is inherently limited. No paraspinal mass or hematoma. IMPRESSION: Negative CT head examination for acute or significant finding. Cervical spine degenerative change as detailed. No acute finding.
--- NOTE | 2020-03-16 19:02 | RAD REPORT ---
EXAM DESCRIPTION: CT - Stone Protocol - 03/16/2020 6:45 pm CLINICAL HISTORY: low back pain s/p fall, back pain right leg and hip pain COMPARISON: Abdomen Pelvis Wo Contrast dated 03/02/2019 TECHNIQUE: Axial [address] imaging of the abdomen and pelvis was performed without IV contrast. No IV contrast was given because of allergy, abnormal renal function, patient refusal or physician re quest. Oral contrast was given. All CT scans are performed using dose optimization technique as appropriate and may include automated exposure control or mA/KV adjustment according to patient size. FINDINGS: No suspicious findings in the lung bases. The liver, spleen and pancreas show no suspicious findings on non-contrast imaging. Cholecystectomy c lips are present. No biliary tree dilatation. No hydronephrosis or suspicious renal mass. No significant adrenal finding. Isodense renal masses an d pyelonephritis cannot be excluded in the absence of IV contrast. Urinary bladder is contracted. [place] christ is absent. Atrophic ovaries are present. No adnexal abnormality seen. No dilated bowel loops or bowel wall thickening. No acute GI process identifiable. Mild to moderate d iverticulosis is present. No free air, free fluid or inflammatory stranding. No mass or bulky lymphad enopathy. Very small fat only umbilical hernia is present. Patient has convex bowing of the anterior abdominal wall of the umbilicus. No suspicious bony findings. IMPRESSION: Non-contrast enhanced CT abdomen and pelvis imaging show no significant or suspicious fi nding. Full assessment is limited is the absence of IV contrast. No significant change from the February 2019 study.
[2020-03-16] MEDS ORDERED: KETOROLAC 30 MG/ML INJ ONE (19:48)
--- NOTE | 2020-03-16 20:02 | RAD REPORT ---
EXAM DESCRIPTION: RAD - Ankle Right 3 View - 03/16/2020 7:04 pm CLINICAL HISTORY: Fall, ankle pain COMPARISON: None. FINDINGS: No fracture, dislocation or periosteal reaction. No joint effusion seen. No joint space na rrowing. Lateral soft tissue swelling is present. Minimal spurring is present at the Achilles attachment. IMPRESSION: Soft tissue swelling with no right ankle fracture.
--- NOTE | 2020-03-16 20:02 | RAD REPORT ---
EXAM DESCRIPTION: RAD - Wrist Left 3 View - 03/16/2020 7:04 pm CLINICAL HISTORY: PAINslip and fall, left wrist pain COMPARISON: No comparisons FINDINGS: No fracture is identified. There is no dislocation or periosteal reaction noted. No foreig n body or other soft tissue abnormality. IMPRESSION: Negative left wrist examination.
--- NOTE | 2020-03-16 20:04 | ER ---
Nurse's Notes [facility] Name: Charisse Tarango Age: 65 yrs Sex: Female : 1955 Arrival Date: 03/16/2020 Time: 17:46 Bed 14 Private MD: Diagnosis: Pain in right ankle and joints of right foot;Pain in left wrist;Superficial injury of head;Low back pain Presentation: 03/16 18:01 Method Of Arrival: Ambulatory ca1 18:04 Chief complaint: Patient states: Slipped and fall on Thursday , C/O R hip pain, Tim. Heel ca1 pain, R leg pain, Upper back pain, headache, neck pain. L upper arm, L elbow, L wrist pain. Denies LOC. Coronavirus screen: Client denies travel out of the [place] in the last 14 days. At this time, the client does not indicate any symptoms associated with coronavirus-19. Ebola Screen: Patient negative for fever greater than or equal to 101.5 degrees Fahrenheit, and additional compatible Ebola Virus Disease symptoms Patient denies exposure to infectious person. Patient denies travel to an Ebola-affected area in the 21 days before illness onset. No symptoms or risks identified at this time. Initial Sepsis Screen: Does the patient meet any 2 criteria? No. Patient's initial sepsis screen is negative. Does the patient have a suspected source of infection? No. Patient's initial sepsis screen is negative. Risk Assessment: Do you want to hurt yourself or someone else? Patient reports no desire to harm self or others. Onset of symptoms was March 16, 2020. 18:04 Acuity: SANDRA 4 ca1 18:12 Note [employer] # [id number]. ca1 Triage Assessment: 18:27 General: Appears in no apparent distress. uncomfortable, obese, Behavior is bp cooperative, appropriate for age, anxious, THURSDAY HAD A MECHANICAL FALL AT HOME, C/O LEFT HEAD/EYE PAIN, RIGHT ANKLE PAIN/EDEMA, R HIP PAIN. PT AMBULATORY ON ARRIVAL. Pain: Complains of pain in left eye, right lower back and anterior aspect of right ankle. EENT: Eyes LEFT SUPRA-ORBITAL HEMATOMA. Neuro: No deficits noted. Cardiovascular: No deficits noted. Respiratory: No deficits noted. GI: No signs and/or symptoms were reported involving the gastrointestinal system. : No signs and/or symptoms were reported regarding the genitourinary system. Derm: No deficits noted. Musculoskeletal: Reports pain in anterior aspect of right ankle. Injury Description: Bruise sustained to left eye. Historical: - Allergies: 18:03 Codeine; ca1 18:03 PENICILLINS; ca1 18:03 Sulfa (Sulfonamide Antibiotics); ca1 - PMHx: 18:03 Hypertension; ca1 - PSHx: 18:03 Hysterectomy; neck; ca1 - Immunization history:: Adult Immunizations up to date. - Social history:: Smoking status: Patient denies any tobacco usage or history of. Screenin:32 Abuse screen: Denies threats or abuse. Denies injuries from another. Nutritional bp screening: No deficits noted. Tuberculosis screening: No symptoms or risk factors identified. Fall Risk None identified. Assessment: 18:31 General: SEE TRIAGE NOTE. bp 19:03 Reassessment: Patient appears in no apparent distress at this time. Patient and/or jb4 family updated on plan of care and expected duration. Pain level reassessed. Patient is alert, oriented x 3, equal unlabored respirations, skin warm/dry/pink. 20:18 Reassessment: Patient appears in no apparent distress at this time. Patient and/or jb4 family updated on plan of care and expected duration. Pain level reassessed. Patient is alert, oriented x 3, equal unlabored respirations, skin warm/dry/pink. PT verbalized understanding of D/c and follow up instructions. Pt ambulated out of the ED with steady gait. Vital Signs: 18:01 BP 157 / 78; Pulse 72; Resp 15 S; Temp 97.5; Pulse Ox 98% on R/A; Weight 61.23 kg (R); ca1 Height 4 ft. 11 in. (149.86 cm) (M); 20:00 BP 153 / 73; Pulse 66; Resp 16; Pulse Ox 100% on R/A; jb4 18:01 Body Mass Index 27.27 (61.23 kg, 149.86 cm) ca1 ED Course: 17:46 Patient arrived in ED. ag5 18:03 Arm band placed on right wrist. ca1 18:12 Triage completed. ca1 18:16 Abhijeet Campbell RN is Primary Nurse. jb4 18:21 Ana Nelson FNP-C is [facility]. kb 18:21 Rafita Hernandez MD is Attending Physician. kb 18:32 Patient has correct armband on for positive identification. Bed in low position. Call bp light in reach. Side rails up X2. 20:00 No provider procedures requiring assistance completed. Patient did not have IV access jb4 during this emergency room visit. Administered Medications: 19:48 Drug: TORadol 30 mg Route: IM; Site: right deltoid; jb4 20:19 Follow up: Response: No adverse reaction; Pain is decreased jb4 Outcome: 20:04 Discharge ordered by . jonny 20:19 Discharged to home ambulatory. jb4 20:19 Condition: stable 20:19 Discharge instructions given to patient, Instructed on discharge instructions, follow up and referral plans. medication usage, Demonstrated understanding of instructions, follow-up care, medications, Prescriptions given X 2. 20:19 Patient left the ED. jb4 Signatures: Ana Nelson, EXT JS DEVELOPER-C EXT JS DEVELOPER-Ckb Abhijeet Campbell RN RN jb4 Sunday Tipton RN RN bp Anita Hale RN RN ca1 Arabella, Harman ag5 Corrections: (The following items were deleted from the chart) 18:13 18:04 Chief complaint: Patient states: Slipped and fall on Thursday , C/O R hip pain, ca1 Tim. Heel pain, R leg pain, Upper back pain, headache, neck pain. Denies LOC. ca1
--- NOTE | 2020-03-16 20:04 | EDPHYS ---
Physician Documentation [facility] Name: Charisse Tarango Age: 65 yrs Sex: Female : 1955 Arrival Date: 03/16/2020 Time: 17:46 Bed 14 Private MD: ED Physician Rafita Hernandez HPI: 03/16 19:01 This 65 yrs old Female presents to ER via Ambulatory with complaints of Pain kb All Over. 19:04 Details of fall: The patient fell from an upright position. Onset: The symptoms/episode kb began/occurred 6 day(s) ago. Associated injuries: The patient sustained injury to the head, pain, neck injury, pain, pain with movement, left wrist and anterior aspect of right ankle, decreased range of motion, painful injury, low back area, painful injury. Severity of symptoms: At their worst the symptoms were moderate, in the emergency department the symptoms are unchanged. The patient has not experienced similar symptoms in the past. The patient has not recently seen a physician. Pt reports she twisted her ankle on Thursday causing her to fall and hit head on tv. Reports pain to low back, worse on right, right ankle, left wrist, left side of head. Pt ambulates with steady gait.. Historical: - Allergies: 18:03 Codeine; ca1 18:03 PENICILLINS; ca1 18:03 Sulfa (Sulfonamide Antibiotics); ca1 - PMHx: 18:03 Hypertension; ca1 - PSHx: 18:03 Hysterectomy; neck; ca1 - Immunization history:: Adult Immunizations up to date. - Social history:: Smoking status: Patient denies any tobacco usage or history of. ROS: 19:00 Constitutional: Negative for fever, chills, and weight loss, Eyes: Negative for injury, kb pain, redness, and discharge, ENT: Negative for injury, pain, and discharge, Cardiovascular: Negative for chest pain, palpitations, and edema, Respiratory: Negative for shortness of breath, cough, wheezing, and pleuritic chest pain, Abdomen/GI: Negative for abdominal pain, nausea, vomiting, diarrhea, and constipation, Back: Negative for injury and pain. 19:00 Neck: Positive for pain with movement, pain at rest. 19:00 MS/extremity: Positive for pain, tenderness, of the left wrist and anterior aspect of right ankle. 19:00 Neuro: Positive for headache. Exam: 19:02 Constitutional: This is a well developed, well nourished patient who is awake, alert, kb and in no acute distress. Eyes: Pupils equal round and reactive to light, extra-ocular motions intact. Lids and lashes normal. Conjunctiva and sclera are non-icteric and not injected. Cornea within normal limits. Periorbital areas with no swelling, redness, or edema. ENT: Nares patent. No nasal discharge, no septal abnormalities noted. Tympanic membranes are normal and external auditory canals are clear. Oropharynx with no redness, swelling, or masses, exudates, or evidence of obstruction, uvula midline. Mucous membranes moist. Neck: Trachea midline, no thyromegaly or masses palpated, and no cervical lymphadenopathy. Supple, full range of motion without nuchal rigidity, or vertebral point tenderness. No Meningismus. Chest/axilla: Normal chest wall appearance and motion. Nontender with no deformity. No lesions are appreciated. Cardiovascular: Regular rate and rhythm with a normal S1 and S2. No gallops, murmurs, or rubs. Normal PMI, no JVD. No pulse deficits. Respiratory: Lungs have equal breath sounds bilaterally, clear to auscultation and percussion. No rales, rhonchi or wheezes noted. No increased work of breathing, no retractions or nasal flaring. Abdomen/GI: Soft, non-tender, with normal bowel sounds. No distension or tympany. No guarding or rebound. No evidence of tenderness throughout. Back: No spinal tenderness. No costovertebral tenderness. Full range of motion. Skin: Warm, dry with normal turgor. Normal color with no rashes, no lesions, and no evidence of cellulitis. Neuro: Awake and alert, GCS 15, oriented to person, place, time, and situation. Cranial nerves II-XII grossly intact. Motor strength 5/5 in all extremities. Sensory grossly intact. Cerebellar exam normal. Normal gait. 19:02 Head/face: Noted is no obvious of injury or deformity except ecchymosis, that is mild, of the left eye. 19:02 Musculoskeletal/extremity: Extremities: grossly normal except: noted in the left wrist and anterior aspect of right ankle: pain, tenderness, ROM: limited active range of motion due to pain, in the left wrist and anterior aspect of right ankle, Circulation is intact in all extremities. Sensation intact. Weight bearing: able to fully bear weight. Vital Signs: 18:01 BP 157 / 78; Pulse 72; Resp 15 S; Temp 97.5; Pulse Ox 98% on R/A; Weight 61.23 kg (R); ca1 Height 4 ft. 11 in. (149.86 cm) (M); 20:00 BP 153 / 73; Pulse 66; Resp 16; Pulse Ox 100% on R/A; jb4 18:01 Body Mass Index 27.27 (61.23 kg, 149.86 cm) ca1 MDM: 18:21 Patient medically screened. kb 19:01 Data reviewed: vital signs, nurses notes. Data interpreted: Pulse oximetry: on room air kb is 98 %. Interpretation: normal. 19:46 Counseling: I had a detailed discussion with the patient and/or guardian regarding: the kb historical points, exam findings, and any diagnostic results supporting the discharge/admit diagnosis, radiology results, the need for outpatient follow up, a family practitioner, to return to the emergency department if symptoms worsen or persist or if there are any questions or concerns that arise at home. 03/16 18:28 Order name: Wrist Left (3 View) XRAY 03/16 18:28 Order name: Ankle Right 3 View XRAY 03/16 18:28 Order name: CT Head C Spine 03/16 18:28 Order name: CT Stone Protocol 03/16 18:59 Order name: CT; Complete Time: 18:59 EDMS 03/16 19:02 Order name: CT; Complete Time: 19:07 EDMS 03/16 20:03 Order name: RAD; Complete Time: 20:03 EDMS 03/16 20:03 Order name: RAD; Complete Time: 20:03 EDMS Administered Medications: 19:48 Drug: TORadol 30 mg Route: IM; Site: right deltoid; jb4 20:19 Follow up: Response: No adverse reaction; Pain is decreased jb4 Disposition: 03/16/20 20:04 Discharged to Home. Impression: Pain in right ankle and joints of right foot, Pain in left wrist, Superficial injury of head, Low back pain. - Condition is Stable. - Discharge Instructions: Musculoskeletal Pain. - Prescriptions for Cyclobenzaprine 10 mg Oral Tablet - take 1 tablet by ORAL route every 8 hours As needed; 21 tablet. Diclofenac Sodium 75 mg Oral Tablet, Delayed Release (E.C.) - take 1 tablet by ORAL route 2 times per day As needed; 30 tablet. - Medication Reconciliation Form, Thank You Letter, Antibiotic Education, Prescription Opioid Use form. - Follow up: Emergency Department; When: As needed; Reason: Worsening of condition. Follow up: Private Physician; When: 2 - 3 days; Reason: Recheck today's complaints, Continuance of care, Re-evaluation by your physician. Addendum: 03/19/2020 11:15 Co-signature as Attending Physician, Rafita Hernandez MD I agree with the assessment and k dr plan of care. Signatures: Dispatcher [employer] EDMS Aan Nelson, DELIVERY ARCHITECT-C DELIVERY ARCHITECT-Ckb Rafita Hernandez MD MD kdr Abhijeet Campbell, RN RN jb4 AcAnita reagan RN RN ca1 Corrections: (The following items were deleted from the chart) 03/16 20:19 20:04 03/16/2020 20:04 Discharged to Home. Impression: Pain in right ankle and joints jb4 of right foot; Pain in left wrist; Superficial injury of head; Low back pain. Condition is Stable. Discharge Instructions: Musculoskeletal Pain. Prescriptions for Cyclobenzaprine 10 mg Oral Tablet - take 1 tablet by ORAL route every 8 hours As needed; 21 tablet, Diclofenac Sodium 75 mg Oral Tablet, Delayed Release (E.C.) - take 1 tablet by ORAL route 2 times per day As needed; 30 tablet. and Forms are Medication Reconciliation Form, Thank You Letter, Antibiotic Education, Prescription Opioid Use. Follow up: Emergency Department; When: As needed; Reason: Worsening of condition. Follow up: Private Physician; When: 2 - 3 days; Reason: Recheck today's complaints, Continuance of care, Re-evaluation by your physician. kb
[2020-03-16 20:24] VITALS: TEMP 97.5
[2020-03-16 20:28] VITALS: BP 153/73; O2SAT 100
== END 2020-03-16 20:19 | disposition home or self-care (01) ==
LOC: ER 17:44
DX: S00.90XA Unspecified superficial injury of unspecified part of head, initial encounter (principal); M25.571 Pain in right ankle and joints of right foot; M25.532 Pain in left wrist; I10 Essential (primary) hypertension; W01.198A Fall on same level from slipping, tripping and stumbling with subsequent striking against other object, initial encounter; Y93.9 Activity, unspecified; Y92.9 Unspecified place or not applicable; Z88.0 Allergy status to penicillin; Z88.2 Allergy status to sulfonamides; Z88.5 Allergy status to narcotic agent
CPT/HCPCS: 70450; 72125; 74176; 76377; 96372; 99283

== ENCOUNTER → 2020-04-27 | Day surgery (SDC) | payer OTHER ==
[~2020-04-27] MED LIST: PAMIDRONATE 90 MG in NA CHLORIDE 0.9% 500 ML IV SCH
--- OUTSIDE RECORDS SUMMARY | 2020-04-27 14:48 | XMS REPORT ---
[...] G43.911 Active migrainosus, unspecified migraine type Assessment Non-seasonal allergic rhinitis, J30.89 Active unspecified trigger Problem Non-seasonal allergic rhinitis, J30.89 Active unspecified trigger Assessment PUD (peptic ulcer disease) K27.9 A ctive Assessment Simple chronic bronchitis J41.0 Ac tive Problem High triglycerides E78.1 Active Problem Simple [...] N20.0 Active Problem Reflux K21.9 Active Assessment JOE positive R76.8 Active Problem PUD (peptic ulcer disease) K27.9 A ctive Problem Memory problem R41.3 Active Assessment Osteopenia of lumbar spine M85.88 A ctive Problem Sinus problem J34.9 Active Problem Allergic rhinitis J30.9 Active Medications Medication Code Code Instructions Start End Status Dosage System Date Date Lovaza [facility] [id number] 1 GM Orally January 04, Jul 02, Active 2 capsul es Twice a day 2019 2019 Dexilant [facility] 02332518245 60 MG Active TAKE ONE CAPSULE BY MOUTH DAILY 30 MINUTES BEFORE EATING BREAKFAST Fluticasone ND 94536121889 50 Active USE 2 SP RAYS Propionate IN EACH NOSTRIL EVERY DAY Metoprolol ND 20933400579 50 MG Orally Active 1 ta blet Tartrate Twice a day with food HydrOXYzine HCl ND 60958610677 25 MG Orally Aug 24, Active 1 tablet as every 12 hours 2020 needed prn itching Clindamycin HCl ND 13923715678 150 MG Orally Active 2 capsules every 8 hrs Montelukast ND 65648657853 10 MG Orally Active 1 t ablet Sodium Once a day [place] 3 ND 11745207669 1000 MG Orally Active 1 cap alicia Once a day Fluticasone ND 65746529733 50 MCG/ACT Active USE 2 SPRAYS Propionate IN EACH NOSTRIL EVERY DAY Famotidine ND 06378753254 40 MG Orally Active 1 ta blet at Once a day bedtime Results Name Result Date Reference Range Unit Abnormali ty Flag CBC With Differential/Platelet ----Lymphs 38 [id number] Not Estab. % ----Neutrophils 53 [id number] Not Estab. % ----Baso (Absolute) 0.1 [id number] 0.0-0.2 x10E3/uL ----Hemoglobin 12.5 [id number] 11.1-15.9 g/dL ----Eos (Absolute) 0.1 [id number] 0.0-0.4 x10E3/uL ----Hematocrit 37.0 77757791 34.0-46.6 % ----Monocytes(Absolute) 0.4 [id number] 0.1-0.9 x10E3/uL ----MCV 92 61367308 79-97 fL ----Lymphs (Absolute) 2.5 [id number] 0.7-3.1 x10E3/uL ----MCH 31.2 [id number] 26.6-33.0 pg ----Neutrophils (Absolute) 3.4 [id number] 1.4-7.0 x10E3/uL ----MCHC 33.8 [id number] 31.5-35.7 g/dL ----Immature Granulocytes 0 [id number] Not Estab. % ----Basos 1 [id number] Not Estab. % ----RDW 13.3 49808071 11.7-15.4 % ----Immature Grans (Abs) 0.0 [id number] 0.0-0.1 x10E3/uL ----Eos 2 [id number] Not Estab. % ----WBC 6.5 [id number] 3.4-10.8 x10E3/uL ----Platelets 203 [id number] 150-450 x10E3/uL ----RBC 4.01 [id number] 3.77-5.28 x10E6/uL ----Monocytes 6 [id number] Not Estab. % Lipid Panel w/ Chol/HDL Ratio ----Cholesterol, Total 234 89158861 100-199 mg/dL H ----Triglycerides 700 87368404 0-149 mg/dL HH ----HDL Cholesterol 37 95806508 >39 mg/dL L ----T. Chol/HDL Ratio 6.3 [id number] 0.0-4.4 ratio H LDL Cholesterol (Direct) ----LDL Chol. (Direct) 107 43670347 0-99 mg/dL H Summary Purpose eClinicalWorks Submission
--- OUTSIDE RECORDS SUMMARY | 2020-04-27 14:48 | XMS REPORT ---
:1955 Author Organization eClinicalWorks Care Team Providers Name Role Phone Kunz, Na Provider Role Unavailable Allergies No Known Allergies Problems Problem Type Condition Code Onset Dates Condition Statu s Problem Cervical radiculopathy due to M47.22 Active degenerative joint disease of spine Problem Varicose veins of bilateral lower I83.813 Active extremities with pain Problem Simple chronic bronchitis J41.0 Ac tive Problem High triglycerides E78.1 Active Problem Intractable migraine with status G43.911 Active migrainosus, unspecified migraine type Problem Hypercalcemia E83.52 Active Problem Allergic rhinitis J30.9 Active Problem Swelling R60.9 Active Problem Non-seasonal allergic rhinitis, J30.89 Active unspecified trigger Problem Essential hypertension I10 Activ e Problem PUD (peptic ulcer disease) K27.9 A ctive Problem Reflux K21.9 Active Problem Memory problem R41.3 Active Problem Sinus problem J34.9 Active Problem Ulcer L98.499 Active Problem Kidney stones N20.0 Active Problem Circulation problem I99.9 Active Medications Medication Code Code Instructions Start End Status Dosage System Date Date Famotidine ND 32396469321 40 MG Orally Active 1 ta blet at Once a day bedtime Fluticasone ND 29236457964 50 MCG/ACT Active USE 2 SPRAYS Propionate IN EACH NOSTRIL EVERY DAY [place] ND 46687168401 1 GM Orally January 04, Jul 02, Active 2 capsul es Twice a day 2019 2019 Dexilant ND 95252763316 60 MG Active TAKE ONE CAPSULE BY MOUTH DAILY 30 MINUTES BEFORE EATING BREAKFAST Gemfibrozil ND 48325651455 600 MG Orally Apr 20, Active 1 tablet 30 Twice a day 2020 minutes before morning and evening meals Montelukast ND 76147063093 10 MG Orally Active 1 t ablet Sodium Once a day Metoprolol ND 36216461301 50 MG Orally Active 1 ta blet Tartrate Twice a day with food Clindamycin HCl ND 22590135051 150 MG Orally Active 2 capsules every 8 hrs HydrOXYzine HCl [facility] 04246161101 25 MG Orally Aug 24, Active 1 tablet as every 12 hours 2020 needed prn itching Fluticasone [facility] 72174735302 50 Active USE 2 SP RAYS Propionate IN EACH NOSTRIL EVERY DAY May 3 [facility] 00708224668 1000 MG Orally Active 1 cap alicia Once a day Results No Known Results Summary Purpose eClinicalWorks Submission
--- OUTSIDE RECORDS SUMMARY | 2020-04-27 14:48 | XMS REPORT | Continuity of Care Document ---
:[address] [facility] t Address [address] [place] [address] Care Team Providers Name Role Phone Unavailable [...] triglyceri Ada kes - justin justin [facility] ent Clinics Hypercalce Hypercalce Problem Active C HI [facility] lani lani kes - [facility] ent Clinics Allergies, Adverse Reactions, Alerts Allergy Allergy Status Severity Reaction(s) Onset Inactive Treating Comm ents Source Name Type Date Date Clinician codeine Adverse Active nausea and [facility] Reaction vomiting [facility] ent [facility] Medications Ordered Filled Start Stop Current Ordering Indication Dosage Frequency Signature Comments Components Source Medication Medication Date Date Medication? Clinician (SIG) Name Name Gemfibrozil Gemfibrozil Yes Na Kunz [address] [facility] 9-11 30 minutes [facility] before [facility] 00 [facility] evening ent meals Clinics Lovaza Lovaza 0 2020- No Na Kunz [address] [facility] 5-28 11-23 [facility] :00 l [facility] ent [facility] HydrOXYzine HydrOXYzine Yes Na Kunz [address] [facility] HCl HCl 1-15 as needed [facility]: [facility] 00 [facility] ent [facility] [place] 3 Yes Na Kunz [address] [facility] ent [facility] Montelukast Montelukast Yes Na Kunz [address] [facility] Sodium Sodium [facility] ent [facility] Metoprolol Metoprolol Yes Na Kunz [address] [facility] Tartrate Tartrate with food Ada [facility] ent [facility] Clindamycin Clindamycin Yes Na Kunz [address] HCl HCl [facility] l [facility] ent Clinics Fluticasone Fluticasone Yes Na Kunz USE [address] [facility] Propionate Propionate SPRAYS [facility] DAY [facility] ent Clinics Famotidine Famotidine Yes Na Kunz [address] [facility] at bedtime [facility] ent Clinics Dexilant Dexilant Yes Na Kunz TAKE ONE [facility] CAPSULE BY [facility] - MOUTH [facility]oria DAILY 30 l MINUTES Outpati BEFORE ent EATING Clinics BREAKFAST Immunizations Ordered Filled Immunization Date Status Comments Sour e Immunization Name Name Helga Partida 2019-09-[address] [facility] 00[facility]00 [facility] Out[facility] Procedures This patient has no known procedures. Encounters Start End Encounter Admission Attending Care Care Encounter Source Date/Time Date/Time Type Type Clinicians Facility Department ID 2020-04-25 2020-04-25 [facility] [id number] [facility] 15:31:00 15:31:00 [facility] Medicine Outpati ent Clinics 2020-04-20 2020-04-20 [facility] [id number] [facility] 11:39:00 11:39:00 t Tab [place] [facility] Medicine Outpati ent Clinics 2020-04-17 2020-04-17 [facility] [id number] 16:17:00 16:17:00 [facility] Medicine Outpat[facility] ent Clinics 2020-03-23 2020-03-23 [facility] [id number] 09[facility]20:00 09:20:00 [facility] Medicine Outpat[facility] ent Clinics 2020-02-27 2020-02-27 [facility] [id number] [facility] 09[facility]10:00 09:10:00 [facility] Medicine Outpati ent Clinics 2020-01-20 2020-01-20 [facility] [id number] [facility] 13:31:00 13:31:00 [facility] Medicine Outpati ent Clinics 2020-01-16 2020-01-16 [facility] [id number] [facility] 10:14:00 10:14:00 [facility] Medicine Outpati ent Clinics 2020-01-16 2020-01-16 [facility] [id number] [facility] 10:11:00 10:11:00 [facility] Medicine Outpati ent Clinics 2020-01-04 2020-01-04 [facility] [id number] 16:56:00 16:56:00 [email or web address] [facility] Medicine l Medicine Outpati ent Clinics 2020-01-04 2020-01-04 [facility] [id number] 16[facility]00:00 16:00:[address] [facility] [address] [facility] Medicine l Medicine Outpati ent Clinics 2019-12-21 2019-12-21 [facility] [id number] 08:40:00 08:40:00 [email or web address] [facility] Medicine l Medicine Outpati ent Clinics 2019-12-05 2019-12-05 [facility] [id number] [facility] 11:14:00 11:14:00 [facility] [employer] [facility] [employer] [facility] Medicine Outpati ent Clinics 2019-11-29 2019-11-29 [facility] [id number] [facility] 14:53:00 14:53:00 [facility] [employer] [facility] Medicine Outpati ent Clinics 2019-11-29 2019-11-29 [facility] [id number] 14:00:00 14:00:00 [facility] [employer] [facility] Medicine Outpati ent Clinics 2019-11-29 2019-11-29 [facility] [id number] [facility] 10:09:00 10:09:00 t Specialty/U Ada kes - Specialty rology [facility] l Clinic Outpati ent Clinics 2019-10-06 2019-10-06 [facility] [id number] 15:47:00 15:47:00 [email or web address] [facility] Medicine l Medicine Outpati ent Clinics 2019-10-06 2019-10-06 [facility] [id number] [facility] 15:44:00 15:44:00 [email or web address] [facility] Medicine l Medicine Outpati ent Clinics 2019-09-15 2019-09-15 [facility] [id number] [facility] 11:04:00 11:04:00 [email or web address] [facility] Medicine Outpati ent Clinics 2019-09-13 2019-09-13 [facility] [id number] [facility] 10:18:00 10:18:00 t [employer] [facility] Medicine Outpati ent Clinics 2019-09-09 2019-09-09 [facility] [id number] [facility] 13:40:00 13:40:00 t [employer] [facility] Medicine Outpati ent Clinics 2019-08-29 2019-08-29 [facility] [id number] 14:10:00 14:10:00 t [employer] [facility] Medicine Outpati ent Clinics 2019-08-24 2019-08-24 [facility] [id number] [facility] 13:34:00 13:34:00 t [employer] [facility] Medicine Outpati ent Clinics 2019-08-23 2019-08-23 [facility] [id number] [facility] 16:00:00 16:00:00 t [employer] [facility] Medicine Outpati ent Clinics Results This patient has no known results.
--- OUTSIDE RECORDS SUMMARY | 2020-04-27 14:48 | XMS REPORT ---
[...] (peptic ulcer disease) K27.9 A ctive Assessment Kidney stones N20.0 Active Problem Reflux K21.9 Active Problem Memory problem R41.3 Active Problem Sinus problem J34.9 Active Problem Ulcer L98.499 Active Problem Kidney stones N20.0 Active Problem Circulation problem I99.9 Active Medications No Known Medications Results No Known Results Summary Purpose eClinicalWorks Submission
--- OUTSIDE RECORDS SUMMARY | 2020-04-27 14:48 | XMS REPORT ---
[...] Ac tive Problem High triglycerides E78.1 Active Assessment Hypercalcemia E83.52 Active Problem Intractable migraine with status G43.911 Active migrainosus, unspecified migraine type Problem Hypercalcemia E83.52 Active Problem Allergic rhinitis J30.9 Active Problem Swelling R60.9 Active Problem Non-seasonal allergic rhinitis, J30.89 Active unspecified trigger Problem Essential hypertension I10 Activ e Problem PUD (peptic ulcer disease) K27.9 A ctive Assessment High triglycerides E78.1 Active Assessment Essential hypertension I10 Activ e Problem Reflux K21.9 Active Problem Memory problem R41.3 Active Problem Sinus problem J34.9 Active Problem Ulcer L98.499 Active Problem Kidney stones N20.0 Active Problem Circulation problem I99.9 Active Medications No Known Medications Results No Known Results Summary Purpose eClinicalWorks Submission
[2020-04-27 16:41] VITALS: BP 146/74; TEMP 97.5; O2SAT 99; BMI 26.2
== END ==
LOC: DS 14:45
PROVIDERS: ATTEND Internal Medicine Nephrology
DX: E83.52 Hypercalcemia (principal); E21.0 Primary hyperparathyroidism
CPT/HCPCS: J2430; J7040; 96365; 96366

== ENCOUNTER 2020-08-20 10:15 | Observation (INO) | payer OTHER ==
[2020-08-20] MEDS ORDERED: LACTULOSE 20 GM/30 ML UCUP ONE (10:44)
--- OUTSIDE RECORDS SUMMARY | 2020-08-20 10:44 | XMS REPORT | Continuity of Care Document ---
:1955 Author Organization [facility] t Address [address] [place] [address] Care Team Providers Name Role Phone Unavailable [...] Kidney Problem Active [facility] stones stones [facility] Intractabl Intractabl Problem Active [facility] e migraine e migraine Ada kes - with with Memoria status status l migrainosu migrainosu Ou tpati s, s, ent unspecifie unspecifie Cl inics d migraine d migraine type type High High Problem Active [facility] triglyceri triglyceri Ada kes - justin justin Memoria l [facility] ent [facility] Hypercalce Hypercalce Problem Active [facility] lani lani [facility] l [facility] ent Clinics Allergies, Adverse Reactions, Alerts Allergy Allergy Status Severity Reaction(s) Onset Inactive Treating Comm ents Source Name Type Date Date Clinician codeine Adverse Active nausea and [facility] Reaction vomiting [facility] Medications Ordered Filled Start Stop Current Ordering Indication Dosage Frequency Signature Comments Components Source Medication Medication Date Date Medication? Clinician (SIG) Name Name Gemfibrozil Gemfibrozil Yes Na Kunz [address] [facility] 9-11 30 minutes [facility] before [facility] 00 [facility] evening ent meals Clinics Lovaza Lovaza 0 2020- No Na Kunz [address] [facility] 5-28 11-23 [facility]:00 [facility] 00 :00 [facility] HydrOXYzine HydrOXYzine Yes Na Kunz [address] [facility] HCl HCl 1-15 as needed [facility] - 00:[facility]: Mem[facility] 00 [facility] ent [facility] Casey 3 Casey 3 Yes Na Kunz [address] [facility] ent [facility] Montelukast Montelukast Yes Na Kunz [address] [facility] [address] Sodium Sodium [facility] ent [facility] Metoprolol Metoprolol Yes Na Kunz [address] [address] Tartrate Tartrate with food Ada [facility] ent [facility] Clindamycin Clindamycin Yes Na Kunz [address] HCl HCl [facility] ent [facility] Fluticasone Fluticasone Yes Na Kunz USE [address] [facility] Propionate Propionate SPRAYS IN [facility] - EACH Memoria NOSTRIL l EVERY DAY [facility] ent Clinics Famotidine Famotidine Yes Na Kunz [address] [facility] at bedtime [facility] l Outpati ent Clinics Dexilant Dexilant Yes Na Kunz TAKE ONE [facility] CAPSULE BY [facility] - MOUTH [facility] DAILY 30 l MINUTES Outpati BEFORE ent EATING Clinics BREAKFAST Immunizations Ordered Filled Immunization Date Status Comments Sourc e Immunization Name Name Helga Partida 2019-09-[address] [facility] Procedures This patient has no known procedures. Encounters Start End Encounter Admission Attending Care Care Encounter Source Date/Time Date/Time Type Type Clinicians Facility Department ID 2020-04-25 2020-04-25 [facility] [id number] [facility] 15:31:00 15:31:00 t [facility] Medicine l Medicine Outpati ent Clinics 2020-04-20 2020-04-20 [facility] [id number] [facility] 11:39:00 11:39:00 [facility] l Medicine Outpati ent Clinics 2020-04-17 2020-04-17 [facility] [id number] [address] 16:17:00 16:17:00 [facility] l Medicine Outpati ent Clinics 2020-03-23 2020-03-23 [facility] [id number] [address] 09:20:00 09:20:00 t [facility] l Medicine Outpati ent Clinics 2020-02-27 2020-02-27 [facility] [id number] [address] 09:10:00 09:10:00 t [facility] Medicine l Medicine Outpati ent Clinics 2020-01-20 2020-01-20 [facility] [id number] 13:31:00 13:31:00 [email or web address] Medicine l Medicine Outpati ent Clinics 2020-01-16 2020-01-16 [facility] [id number] [address] 10:14:00 10:14:00 t [facility] l Medicine Outpati ent Clinics 2020-01-16 2020-01-16 [facility] [id number] [address] 10:11:00 10:11:00 t [facility] Medicine l Medicine Outpati ent Clinics 2020-01-04 2020-01-04 [facility] [id number] [address] 16:56:00 16:56:00 t [place] [place] [address] [facility] l Medicine Outpati ent Clinics 2020-01-04 2020-01-04 [facility] [id number] [address] 16:00:00 16:00:00 t [facility] l Medicine Outpati ent Clinics 2019-12-21 2019-12-21 [facility] [id number] 08:40:00 08:40:00 t [email or web address] [facility] Medicine l Medicine Outpati ent Clinics 2019-12-05 2019-12-05 [facility] [id number] 11:14:00 11:14:00 [facility] l Medicine Outpati ent Clinics 2019-11-29 2019-11-29 [facility] [id number] [address] 14:53:00 14:53:00 t [facility] l Medicine Outpati ent Clinics 2019-11-29 2019-11-29 [facility] [id number] 14:00:00 14:00:00 [facility] Medicine Outpati ent Clinics 2019-11-29 2019-11-29 [facility] [id number] 10:09:00 10:09:00 t Specialty/U Ada kes - Specialty rology [facility] a /Urology [facility] l Clinic Outpati ent Clinics 2019-10-06 2019-10-06 [facility] [id number] [address] 15:47:00 15:47:00 t [employer] [address] [facility] l Medicine Outpati ent Clinics 2019-10-06 2019-10-06 [facility] [id number] 15:44:00 15:44:00 t [employer] [facility] l Medicine Outpati ent Clinics 2019-09-15 2019-09-15 [facility] [id number] 11:04:00 11:04:00 t [facility] Medicine Outpati ent Clinics 2019-09-13 2019-09-13 [facility] [id number] 10:18:00 10:18:00 t [facility] Medicine Outpati ent Clinics 2019-09-09 2019-09-09 [facility] [id number] 13:40:00 13:40:00 t [facility] Medicine Outpati ent Clinics 2019-08-29 2019-08-29 [facility] [id number] 14:10:00 14:10:00 t [facility] Medicine Outpati ent Clinics 2019-08-24 2019-08-24 [facility] [id number] 13:34:00 13:34:00 t [facility] Medicine Outpati ent Clinics 2019-08-23 2019-08-23 [facility] [id number] 16:00:00 16:00:00 t [facility] Medicine Outpati ent Clinics Results This patient has no known results.
[2020-08-20 11:41] LABS: Absolute Lymphocytes (CBC) 1.9 K/uL (0.7-4.9); Basophils % 0.4 % (0-1.3); Hematocrit 36.6 % (36.0-45.0); Lymphocytes % 26.5 % (15.3-44.8); MPV 8.9 fL (7.6-11.3); RBC Red Blood Cell Count 4.06 M/uL (3.86-4.86)
[2020-08-20 11:46] LABS: Protime INR 0.95
--- NOTE | 2020-08-20 11:50 | RAD REPORT ---
EXAM DESCRIPTION: CT - Ct Stroke Brain Wo Cont - 08/20/2020 11:40 am CLINICAL HISTORY: Right-sided numbness/weakness COMPARISON: March 2020 TECHNIQUE: Computed axial tomography of the head was obtained. All CT scans are performed using dose optimization technique as appropriate and may include automated exposure control or mA/KV adjustment according to patient size. FINDINGS: An intracranial bleed is not seen . The ventricles are normal in caliber. No extra-axial fluid collection is noted. 8 millimeter subtle low-density area has developed within the left internal capsule/thalamus Fluid within the sinuses/ mastoids is not seen. IMPRESSION: 8 millimeter acute infarction left internal capsule/thalamus Dr Hernandez of the emergency room was notified at 11:42 a.m. August 20, 2020
--- NOTE | 2020-08-20 11:51 | ER ---
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 PT also c/o dizziness and nausea. Denies pain. Coronavirus screen: Client denies travel out of the [place] in the last 14 days. Ebola Screen: Patient denies exposure to infectious person. Patient denies travel to an Ebola-affected area in the 21 days before illness onset. Initial Sepsis Screen: Does the patient meet any 2 criteria? No. Patient's initial sepsis screen is negative. Does the patient have a suspected source of infection? No. Patient's initial sepsis screen is negative. Risk Assessment: Do you want to hurt yourself or someone else? Patient reports no desire to harm self or others. Onset of symptoms was August 19, 2020 at 23:00. 10:50 Method Of Arrival: Wheelchair ss 10:50 Acuity: SANDRA 2 ss Historical: - Allergies: 10:18 Codeine; ss 10:18 PENICILLINS; ss 10:18 Sulfa (Sulfonamide Antibiotics); ss - PMHx: 10:18 Hypertension; ss 10:52 GERD; ss - PSHx: 10:18 Hysterectomy; neck; ss - Immunization history:: Flu vaccine is up to date. - Social history:: Smoking status: Patient denies any tobacco usage or history of. Screenin:20 Abuse screen: Denies threats or abuse. Nutritional screening: No deficits noted. em Tuberculosis screening: No symptoms or risk factors identified. Fall Risk None identified. Assessment: 11:20 General: Appears in no apparent distress. comfortable, Behavior is calm, cooperative, em appropriate for age. Pain: Denies pain. Neuro: Level of Consciousness is awake, alert, obeys commands, Oriented to person, place, time, situation, Appropriate for age [employer] are weak on right Weakness in right arm(s) leg(s) Speech is normal, Reports dizziness, since 11pm numbness in right arm and right leg since 11 pm. Cardiovascular: Capillary refill < 3 seconds Patient's skin is warm and dry. Respiratory: Airway is patent Respiratory effort is even, unlabored, Respiratory pattern is regular, symmetrical. GI: Patient currently denies nausea, vomiting. Derm: Skin is intact, is healthy with good turgor, Skin is pink, warm \T\ dry. Musculoskeletal: Capillary refill < 3 seconds, Range of motion: intact in all extremities. 11:20 T-PA (Activase) Screening: Contraindications: Patient reports onset of signs and em symptoms of stroke greater than 6 hours ago: Yes. 12:10 VAN Scoring: Arm Drift: Patients demonstrates NO arm weakness. Patient is VAN Negative. em Patient has been NPO before screening. The patient is alert, and able to follow commands. The patient does not exhibit slurred or garbled speech. The patient is not exhibiting difficulty speaking. The patient does not exhibit difficulty understanding words. The patient is able to swallow own secretions with no drooling or need for suction. Patient tolerated one teaspoon of water. No drooling, immediate coughing, gurgling, or clearing of the throat was noted. The patient tolerated 90mL of water. No drooling, immediate coughing, gurgling, or clearing of the throat was noted. The patient passed the bedside swallow screening. Oral medications may be given as ordered. Contact Physician for further diet orders. Provider notified of bedside swallow screening results: Rafita Hernandez MD. 12:13 Reassessment: wheeled to CT via stretcher. em 14:22 Reassessment: Patient appears in no apparent distress at this time. Patient and/or em family updated on plan of care and expected duration. Pain level reassessed. Patient is alert, oriented x 3, equal unlabored respirations, skin warm/dry/pink. 14:55 Reassessment: Hospitalist Gee at bedside. sr5 Vital Signs: 10:50 BP 170 / 91; Pulse 79; Resp 15; Temp 98.2(TE); Pulse Ox 99% on R/A; Weight 58.97 kg; ss Height 4 ft. 11 in. (149.86 cm); Pain 0/10; 12:00 BP 166 / 86; Pulse 68; Resp 16; Temp 98.5(O); Pulse Ox 99% on R/A; mh5 14:00 BP 162 / 76; Pulse 62; Resp 18; Pulse Ox 99% on R/A; em 10:50 Body Mass Index 26.26 (58.97 kg, 149.86 cm) NIH Stroke Scale Scores: 11:23 NIHSS Score: 2 kdr 12:10 NIHSS Score: 2 em ED Course: 10:16 Patient arrived in ED. ss 10:16 Rafita Hernandez MD is Attending Physician. kdr 10:17 Triage completed. ss 10:29 Ev Haque, RN is Primary Nurse. ll1 10:52 Arm band placed on right wrist. ss 10:55 Thomas Riley, RN is Primary Nurse. em 11:20 Patient has correct armband on for positive identification. Placed in gown. Bed in low em position. Call light in reach. Side rails up X2. Pulse ox on. NIBP on. 11:41 CT Stroke Brain w/o Contrast In Process Unspecified. EDMS 11:42 Basic Metabolic Panel Sent. mh5 11:42 Protime (+inr) Sent. 5 11:42 Ptt, Activated Sent. mh5 11:42 Initial lab(s) drawn, by hi, sent to lab. Inserted saline lock: 20 gauge in left 5 antecubital area, using aseptic technique. Blood collected. 11:[address] recording monitor on. Pulse ox on. NIBP on. mh5 11:49 Jordan Flynn MD is Hospitalizing Provider. kdr 12:21 CT Head Angio In Process Unspecified. EDMS 12:46 Stroke CXR 1 View In Process Unspecified. EDMS 16:29 No provider procedures requiring assistance completed. Patient admitted, IV remains in em place. 19:07 Primary Nurse role handed off by Thomas Riley, RN mw2 19:31 Jordan Landaverde, DARRYL is Primary Nurse. rr5 Administered Medications: 10:41 Not Given (Physician Discretion): Lactulose 20 grams 30 ml PO once ss 12:12 Drug: Aspirin 81 mg Route: PO; em 13:26 Follow up: Response: No adverse reaction em 13:57 Drug: foLIC Acid 1 mg Route: IVPB; Site: left antecubital; em 14:26 Follow up: IV Status: Completed infusion em Outcome: 11:50 Decision to Hospitalize by Provider. kdr 16:29 Admitted to ER Hold. Please see [employer] for further documentation. em 16:29 Condition: stable 16:29 Instructed on the need for admit, Demonstrated understanding of instructions. 21:03 Admitted to Med/surg accompanied by tech, via stretcher, room 232, with chart, Report sg called to DARRYL Elizabeth 21:03 Condition: stable 21:03 Instructed on the need for admit, safety practices, Demonstrated understanding of instructions. 21:12 Patient left the ED. sg NIH Stroke Scale - NIH Stroke Score Date: 08/20/2020 Time: 11:23 Total Score = 2 1a. Level of Consciousness (LOC) - 0(Alert) 1b. Level of Consciousness (LOC) (Year \T\ Age) - 0(Both) 1c. LOC Commands (Open \T\ Closes Eyes/Operations Vocational Instructor) - 0(Both) 2. Best Gaze (Lateral Gaze Paresis) - 0(Normal) 3. Visual Field Loss - 0(No visual loss) 4. Facial Palsy - 0(Normal) 5a. Left Arm: Motor (10-second hold) - 0(No drift) 5b. Right Arm: Motor (10-second hold) - 0(No drift) 6a. Left Leg: Motor (5-second hold - always test supine) - 0(No drift) 6b. Right Leg: Motor (5-second hold - always test supine) - 1(Drift) 7. Limb Ataxia (finger/nose \T\ heel/molina - test with eyes open) - 0(Absent) 8. Sensory Loss (pinprick arms/legs/face) - 1(Mild to moderate loss) 9. Best Language: Aphasia (description/naming/reading) - 0(No aphasia) 10. Dysarthria (speech clarity - read or repeat words) - 0(Normal) 11. Extinction and Inattention (visual/tactile/auditory/spatial/personal) - 0(No abnormality) Initials: [facility] NIH Stroke Scale - NIH Stroke Score Date: 08/20/2020 Time: 12:10 Total Score = 2 1a. Level of Consciousness (LOC) - 0(Alert) 1b. Level of Consciousness (LOC) (Year \T\ Age) - 0(Both) 1c. LOC Commands (Open \T\ Closes Eyes/Operations Vocational Instructor) - 0(Both) 2. Best Gaze (Lateral Gaze Paresis) - 0(Normal) 3. Visual Field Loss - 0(No visual loss) 4. Facial Palsy - 0(Normal) 5a. Left Arm: Motor (10-second hold) - 0(No drift) 5b. Right Arm: Motor (10-second hold) - 0(No drift) 6a. Left Leg: Motor (5-second hold - always test supine) - 0(No drift) 6b. Right Leg: Motor (5-second hold - always test supine) - 1(Drift) 7. Limb Ataxia (finger/nose \T\ heel/molina - test with eyes open) - 0(Absent) 8. Sensory Loss (pinprick arms/legs/face) - 1(Mild to moderate loss) 9. Best Language: Aphasia (description/naming/reading) - 0(No aphasia) 10. Dysarthria (speech clarity - read or repeat words) - 0(Normal) 11. Extinction and Inattention (visual/tactile/auditory/spatial/personal) - 0(No abnormality) Initials: em Signatures: Dispatcher [employer] Alfonso Holloway, RN DARRYL Rafita Hernandez MD MD [facility] Thomas Riley RN RN Shirley Rolle RN RN Subhash Leonard RN RN sr5 Abby Garcia 5 Girish Balderas mw2 Jordan Landaverde RN RN rr5 Ev Haque RN RN ll1 Corrections: (The following items were deleted from the chart) 10:39 10:16 Chief complaint: Patient states: Verbally combative since last night, ss slightly confused. Ammonia levels high recently. 10:39 10:16 Coronavirus screen: Client denies travel out of the [place] in the last 14 ss days. At this time, the client does not indicate any symptoms associated with coronavirus-19. ss 10:39 10:16 Ebola Screen: Patient denies travel to an Ebola-affected area in the 21 ss days before illness onset. 10:39 10:16 Initial Sepsis Screen: Does the patient have a suspected source of ss infection? Yes: Acute abdominal pain 10:39 10:16 Risk Assessment: Do you want to hurt yourself or someone else? Patient ss reports no desire to harm self or others. 10:39 10:16 Onset of symptoms was August 19, 2020 [facility] 10:39 10:16 Method Of Arrival: EMS: [facility] ss : 10:16 Acuity: SANDRA 2 [facility] 10: 10:17 Arm band placed on Patient placed in an exam room, on a stretcher, [facility] 10: 10:18 PMHx: liver cirrhosis; [facility]
--- NOTE | 2020-08-20 11:51 | EDPHYS ---
Physician Documentation [facility] Name: Charisse Tarango Age: 65 yrs Sex: Female : 1955 Arrival Date: 08/20/2020 Time: 10:16 Bed 6 Private MD: ED Physician Rafita Hernandez HPI: 08/20 10:19 This 65 yrs old Female presents to ER via EMS with complaints of Right sided kdr weakness and numbess. 10:19 This 65 yrs old Female presents to ER via Wheelchair with complaints of R Side kdr Numbness. 11:23 This 65 yrs old Female presents to ER via Wheelchair with complaints of R Side kdr Numbness. 10:19 The patient presents with. Onset: The symptoms/episode began/occurred. Possible causes: kdr The patient is a known cirrhotic and has recurrent admissions for AMS secondary to her ammonia level per family. Associated signs and symptoms: The patient has no apparent associated signs or symptoms. Patient's baseline:. . 11:23 Current symptoms: In the emergency department the patient's symptoms are unchanged from kdr the initial presentation. 11:23 The patient presents to the emergency department with weakness of the right upper kdr extremity, that is mild, right lower extremity, that is mild, paresthesias of the right lower extremity, right upper extremity. Onset: The symptoms/episode began/occurred suddenly, last night, at 23:00. Context: occurred at home, occurred while the patient was Brushing her teeth. Associated signs and symptoms: The patient has no apparent associated signs or symptoms. Severity of symptoms: At their worst the symptoms were mild in the emergency department the symptoms have improved mildly. The patient has not experienced similar symptoms in the past. The patient has not recently seen a physician. The patient states that at 11:00 PM last night she was brushing her teeth and noted discomfort in the right side of her head and then she was weak an numb on the right. Is has since improved but not resolved. Historical: - Allergies: 10:18 Codeine; ss 10:18 PENICILLINS; ss 10:18 Sulfa (Sulfonamide Antibiotics); ss - PMHx: 10:18 Hypertension; ss 10:52 GERD; ss - PSHx: 10:18 Hysterectomy; neck; ss - Immunization history:: Flu vaccine is up to date. - Social history:: Smoking status: Patient denies any tobacco usage or history of. ROS: 10:19 Constitutional: Negative for fever, chills, and weight loss, Eyes: Negative for injury, kdr pain, redness, and discharge, ENT: Negative for injury, pain, and discharge, Neck: Negative for injury, pain, and swelling, Cardiovascular: Negative for chest pain, palpitations, and edema, Respiratory: Negative for shortness of breath, cough, wheezing, and pleuritic chest pain, Abdomen/GI: Negative for abdominal pain, nausea, vomiting, diarrhea, and constipation, Back: Negative for injury and pain, : Negative for injury, bleeding, discharge, and swelling, MS/Extremity: Negative for injury and deformity, Skin: Negative for injury, rash, and discoloration, Psych: Negative for depression, anxiety, suicide ideation, homicidal ideation, and hallucinations, Allergy/Immunology: Negative for hives, rash, and allergies, Endocrine: Negative for neck swelling, polydipsia, polyuria, polyphagia, and marked weight changes, Hematologic/Lymphatic: Negative for swollen nodes, abnormal bleeding, and unusual bruising. 10:19 Neuro: Negative for 11:23 Skin: Positive for kdr Exam: 10:19 Constitutional: This is a well developed, well nourished patient who is awake, alert, kdr and in no acute distress. Head/Face: Normocephalic, atraumatic. Eyes: Pupils equal round and reactive to light, extra-ocular motions intact. Lids and lashes normal. Conjunctiva and sclera are non-icteric and not injected. Cornea within normal limits. Periorbital areas with no swelling, redness, or edema. Neck: Trachea midline, no thyromegaly or masses palpated, and no cervical lymphadenopathy. Supple, full range of motion without nuchal rigidity, or vertebral point tenderness. No Meningismus. Chest/axilla: Normal chest wall appearance and motion. Nontender with no deformity. No lesions are appreciated. Cardiovascular: Regular rate and rhythm with a normal S1 and S2. No gallops, murmurs, or rubs. Normal PMI, no JVD. No pulse deficits. Respiratory: Lungs have equal breath sounds bilaterally, clear to auscultation and percussion. No rales, rhonchi or wheezes noted. No increased work of breathing, no retractions or nasal flaring. Abdomen/GI: Soft, non-tender, with normal bowel sounds. No distension or tympany. No guarding or rebound. No evidence of tenderness throughout. Back: No spinal tenderness. No costovertebral tenderness. Full range of motion. Skin: Warm, dry with normal turgor. Normal color with no rashes, no lesions, and no evidence of cellulitis. MS/ Extremity: Pulses equal, no cyanosis. Neurovascular intact. Full, normal range of motion. Psych: Awake, alert, with orientation to person, place and time. Behavior, mood, and affect are within normal limits. 10:19 Neuro: Orientation: to person, place, Not oriented to time, situation. 12:00 ECG was reviewed by the Attending Physician. kdr Vital Signs: 10:50 BP 170 / 91; Pulse 79; Resp 15; Temp 98.2(TE); Pulse Ox 99% on R/A; Weight 58.97 kg; ss Height 4 ft. 11 in. (149.86 cm); Pain 0/10; 12:00 BP 166 / 86; Pulse 68; Resp 16; Temp 98.5(O); Pulse Ox 99% on R/A; mh5 14:00 BP 162 / 76; Pulse 62; Resp 18; Pulse Ox 99% on R/A; em 10:50 Body Mass Index 26.26 (58.97 kg, 149.86 cm) ss NIH Stroke Scale Scores: 11:23 NIHSS Score: 2 kdr 12:10 NIHSS Score: 2 em MDM: 10:19 Data reviewed: vital signs, nurses notes, lab test result(s). Counseling: I had a kdr detailed discussion with the patient and/or guardian regarding: the historical points, exam findings, and any diagnostic results supporting the discharge/admit diagnosis, lab results, radiology results. 11:50 Patient medically screened. [facility] 08/20 11:20 Order name: Basic Metabolic Panel; Complete Time: 13:18 [facility] 08/20 11:20 Order name: CBC with Diff; Complete Time: 13:18 [facility] 08/20 11:20 Order name: Protime (+inr); Complete Time: 13:18 [facility] 08/20 11:20 Order name: Ptt, Activated; Complete Time: 13:18 [facility] 08/20 11:20 Order name: CT Stroke Brain w/o Contrast; Complete Time: 13:18 [facility] 08/20 11:20 Order name: Stroke CXR 1 View; Complete Time: 13:18 [facility] 08/20 18:59 Order name: COVID-19 em 08/20 19:35 Order name: CORONAVIRUS [facility] 08/20 20:38 Order name: SARS-COV-2 RT PCR [facility] 08/20 11:20 Order name: EKG; Complete Time: 11:21 [facility] 08/20 11:20 Order name: Accucheck; Complete Time: 12:12 [facility] 08/20 11:20 Order name: Cardiac monitoring; Complete Time: 11:58 [facility] 08/20 11:20 Order name: EKG - Nurse/Tech; Complete Time: 11:58 [facility] 08/20 11:20 Order name: IV Saline Lock; Complete Time: 11:58 [facility] 08/20 11:48 Order name: CT Head Angio; Complete Time: 13:18 [facility] 08/20 13:47 Order name: Diet Regular; Complete Time: 13:47 08/20 15:05 Order name: CONS Physician Consult [facility] 08/20 19:22 Order name: MRI [facility] 08/20 19:23 Order name: MRI [facility] 08/20 19:25 Order name: MRI [facility] 08/20 11:20 Order name: Labs collected and sent; Complete Time: 11:42 [facility] 08/20 11:20 Order name: NPO; Complete Time: 12:25 [facility] 08/20 11:20 Order name: O2 Per Protocol; Complete Time: 12:25 [facility] 08/20 11:20 Order name: O2 Sat Monitoring; Complete Time: 12:25 [facility] 08/20 11:20 Order name: Stroke Swallow Screen; Complete Time: 12:25 kdr EC:00 Rate is 67 beats/min. Rhythm is regular, Sinus Rhythm with No ectopy. QRS [place] is kdr Normal. HI interval is normal. QRS interval is normal. QT interval is normal. No Q waves. Clinical impression: NSR w/ Non-specific ST/T Changes. Administered Medications: 10:41 Not Given (Physician Discretion): Lactulose 20 grams 30 ml PO once ss 12:12 Drug: Aspirin 81 mg Route: PO; em 13:26 Follow up: Response: No adverse reaction em 13:57 Drug: foLIC Acid 1 mg Route: IVPB; Site: left antecubital; em 14:26 Follow up: IV Status: Completed infusion em Disposition: 08/20/20 11:50 Hospitalization ordered by Jordan Flynn for Inpatient Admission. Preliminary diagnosis is 8 mm Left thalmic internal capsule non-hemorrhagic infarct. - Bed requested for Telemetry/MedSurg (Inpatient). - Status is Inpatient Admission. sg - Condition is Fair. - Problem is new. - Symptoms have improved. NIH Stroke Scale - NIH Stroke Score Date: 08/20/2020 Time: 11:23 Total Score = 2 1a. Level of Consciousness (LOC) - 0(Alert) 1b. Level of Consciousness (LOC) (Year \T\ Age) - 0(Both) 1c. LOC Commands (Open \T\ Closes Eyes/Airplane Gastank Liner Assembler) - 0(Both) 2. Best Gaze (Lateral Gaze Paresis) - 0(Normal) 3. Visual Field Loss - 0(No visual loss) 4. Facial Palsy - 0(Normal) 5a. Left Arm: Motor (10-second hold) - 0(No drift) 5b. Right Arm: Motor (10-second hold) - 0(No drift) 6a. Left Leg: Motor (5-second hold - always test supine) - 0(No drift) 6b. Right Leg: Motor (5-second hold - always test supine) - 1(Drift) 7. Limb Ataxia (finger/nose \T\ heel/molina - test with eyes open) - 0(Absent) 8. Sensory Loss (pinprick arms/legs/face) - 1(Mild to moderate loss) 9. Best Language: Aphasia (description/naming/reading) - 0(No aphasia) 10. Dysarthria (speech clarity - read or repeat words) - 0(Normal) 11. Extinction and Inattention (visual/tactile/auditory/spatial/personal) - 0(No abnormality) Initials: [facility] NIH Stroke Scale - NIH Stroke Score Date: 08/20/2020 Time: 12:10 Total Score = 2 1a. Level of Consciousness (LOC) - 0(Alert) 1b. Level of Consciousness (LOC) (Year \T\ Age) - 0(Both) 1c. LOC Commands (Open \T\ Closes Eyes/Airplane Gastank Liner Assembler) - 0(Both) 2. Best Gaze (Lateral Gaze Paresis) - 0(Normal) 3. Visual Field Loss - 0(No visual loss) 4. Facial Palsy - 0(Normal) 5a. Left Arm: Motor (10-second hold) - 0(No drift) 5b. Right Arm: Motor (10-second hold) - 0(No drift) 6a. Left Leg: Motor (5-second hold - always test supine) - 0(No drift) 6b. Right Leg: Motor (5-second hold - always test supine) - 1(Drift) 7. Limb Ataxia (finger/nose \T\ heel/molina - test with eyes open) - 0(Absent) 8. Sensory Loss (pinprick arms/legs/face) - 1(Mild to moderate loss) 9. Best Language: Aphasia (description/naming/reading) - 0(No aphasia) 10. Dysarthria (speech clarity - read or repeat words) - 0(Normal) 11. Extinction and Inattention (visual/tactile/auditory/spatial/personal) - 0(No abnormality) Initials: em Signatures: Dispatcher [employer] EDMS Margarita Blackmon Steven, RN RN sg Rafita Hernandez MD MD [facility] Thomas Riley RN RN Shirley Rolle RN RN ss Garcia, Cindy, RN RN cg Corrections: (The following items were deleted from the chart) 10:42 10:19 IV Saline Lock ordered. kdr ss 10:42 10:19 Labs collected and sent ordered. kdr ss 10:43 10:19 BASIC METABOLIC PANEL+C.LAB.BRZ ordered. EDMS EDMS 10:43 10:19 CBC+H.LAB.BRZ ordered. EDMS EDMS 10:43 10:19 HEPATIC FUNCTION+C.LAB.BRZ ordered. EDMS EDMS 10:44 10:19 LIPASE+C.LAB.BRZ ordered. EDMS EDMS 10:44 10:20 AMMONIA+C.LAB.BRZ ordered. EDMS EDMS 10:52 10:18 PMHx: liver cirrhosis; ss ss 11:21 10:19 The patient presents with agitation, confusion, kdr kdr 11: 10:19 This 65 yrs old Female presents to ER via EMS with complaints of kdr Altered Mental Status. kdr 11:29 10:19 Onset: The symptoms/episode began/occurred gradually, at an unknown time. kdr kdr 11:29 10:19 Possible causes: The patient is a known cirrhotic and has recurrent kdr admissions for AMS secondary to her ammonia level per family, kdr 11:29 10:19 Associated signs and symptoms: The patient has no apparent associated kdr signs or symptoms, kdr 11:29 10:19 Current symptoms: In the emergency department the patient's symptoms are kdr unchanged from the initial presentation, kdr 11: 10:19 Patient's baseline: Neuro: alert and fully oriented, Motor: no deficits, kdr Ambulation: walks without assistance, Speech: normal for age, kdr 11: 10:19 The patient has experienced similar episodes in the past, multiple times, kdr kdr 11: 10:19 The patient has not recently seen a physician, kdr kdr 11: 10:19 Sister is aggravated since the patient seems ot be in a recurring cycle kdr where she gets confused secondary to her elevated ammonia levels and is admitted, fixed and then discharged only to have the cycle repeats. Per the sister, the patient is taking her lactulose at home as directed. kdr 11:32 10:19 Neuro: Positive for altered mental status, agitated , kdr kdr 15:25 11:50 Hospitalization Ordered by Jordan Flynn MD for Inpatient Admission. bd Preliminary diagnosis is 8 mm Left thalmic internal capsule non-hemorrhagic infarct. Bed requested for Telemetry/MedSurg (observation). Status is Inpatient Admission. Condition is Fair. Problem is new. Symptoms have improved. kdr 19:44 15:25 08/20/2020 11:50 Hospitalization Ordered by Jordan Flynn MD for cg Inpatient Admission. Preliminary diagnosis is 8 mm Left thalmic internal capsule non-hemorrhagic infarct. Bed requested for [facility] ER HOLD. Status is Inpatient Admission. Condition is Fair. Problem is new. Symptoms have improved. bd 21:12 19:44 08/20/2020 11:50 Hospitalization Ordered by Jordan Flynn MD for sg Inpatient Admission. Preliminary diagnosis is 8 mm Left thalmic internal capsule non-hemorrhagic infarct. Bed requested for Telemetry/MedSurg (Inpatient). Status is Inpatient Admission. Condition is Fair. Problem is new. Symptoms have improved. cg
[2020-08-20 11:54] LABS: Potassium 3.9 mmol/L (3.5-5.1)
[2020-08-20] MEDS ORDERED: ASPIRIN 81 MG CHEWABLE TABLET ONE (12:22)
--- NOTE | 2020-08-20 12:40 | RAD REPORT ---
EXAM DESCRIPTION: CTHead angio08/20/2020 12:21 pm CLINICAL HISTORY: Right-sided weakness COMPARISON: None TECHNIQUE: CT angiogram of the head was obtained. 3D MIPS reconstruction performed. All CT scans are performed using dose optimization technique as appropriate and may include automated exposure control or mA/KV adjustment according to patient size. FINDINGS: The basilar, internal carotid, anterior cerebral, middle cerebral and posterior cerebral a rteries are normal caliber. An aneurysm is not seen. origin of the posterior cerebral arteries. Left vertebral artery appears to terminate within th e pica A significant stenosis is not noted. IMPRESSION: No acute abnormality displayed
--- NOTE | 2020-08-20 12:54 | RAD REPORT ---
EXAM DESCRIPTION: RAD - Chest Single View - 08/20/2020 12:46 pm CLINICAL HISTORY: right sided weakness Chest pain. COMPARISON: Chest Pa And Lat (2 Views) dated 11/02/2019; Chest Single View dated 12/29/2018; Chest Pa And Lat (2 Views) dated 08/29/2018 FINDINGS: Portable technique limits examination quality. The lungs are grossly clear. The heart is normal in size. No displaced fractures. IMPRESSION: No acute intrathoracic process suspected.
[2020-08-20] MEDS ORDERED: FOLIC ACID 5 MG/ML VIAL ONE (14:02)
--- NOTE | 2020-08-20 15:15 | P.HP ---
Certification for Inpatient Patient admitted to: Observation With expected LOS: <2 Midnights Practitioner: I am a practitioner with admitting privileges, knowledge of patient current condition, hospital course, and medical plan of care. Services: Services provided to patient in accordance with Admission requirements found in Title 42 Section 412.3 of the Code of Federal Regulations Patient History Date of Service: 08/20/20 Reason for admission: acute CVA History of Present Illness: 65 yo F, PMH: hlD, obesity, presents to ED 12 hours after episode of feeling numbness/weakness of her R side of body (face down to toes). This occurred when the patient was brushing her teeth. She had difficulty walking. The patient decided to go to bed. She woke up with the same symptoms and decided to come to the ED today. A CT head was obtained which show an 8 mm acute infarction in the left internal capsule/thalamus. Neurology was consulted in the ED, and recommended medical management. Labwork was rather unremarkable. Vitals ok, stable. Patient denied any cardiac history, no palpitations, no lightheadedness, no family history of strokes, no recent illness, no fevers/chills. Allergies Penicillins Allergy (Unknown, Verified 09/22/16 08:06) UNKNOWN Sulfa (Sulfonamide Antibiotics) Allergy (Verified 04/27/20 16:44) Rash codeine Adverse Reaction (Intermediate, Verified 09/22/16 08:06) Nausea/Vomiting Home Medications: Cetirizine HCl [Zyrtec] 10 mg PO DAILY 09/22/16 [place]-3S/Dha/Epa/Fish Oil [Fish Oil 1,200 mg Softgel] 3 each PO DAILY 09/22/16 Albuterol Neb [Proventil 0.083% Neb Soln] 2.5 mg IH DAILY 04/27/20 Dexlansoprazole [Dexilant] 60 mg PO DAILY 04/27/20 Montelukast [Singulair*] 10 mg PO DAILY 04/27/20 - Past Medical/Surgical History -: HLD -: GERD -: Hysterectomy -: Neck surgery -: Cholecystectomy -: Umbilical hernia repair - Family History Family History: Reviewed- Non-Contributory (denied family h/o stroke/heart dz/ clotting disorder) - Social History Smoking Status: Never smoker Alcohol use: No Place of Residence: Home Review of Systems 10-point ROS is otherwise unremarkable Physical Examination - Physical Exam General: Alert, In no apparent distress, Oriented x3 HEENT: Sclerae nonicteric Respiratory: Clear to auscultation bilaterally, Normal air movement Cardiovascular: No edema, Regular rate/rhythm Gastrointestinal: Soft and benign, Non-distended, No tenderness Musculoskeletal: No tenderness Integumentary: No rashes Neurological: Normal speech, Normal affect, Other (Str: 5/5 on LLE/LUE, 4/5 RUE/RLE.), Abnormal sensation (diminished sensation on R total face, arm, leg compared to left) - Studies Laboratory Data (last 24 hrs) 08/20/20 11:32: PT 11.2, INR 0.95, APTT 33.4 08/20/20 11:32: WBC 7.2, Hgb 12.4, Hct 36.6, Plt Count 255 08/20/20 11:32: Sodium 142, Potassium 3.9, BUN 11, Creatinine 0.81, Glucose 113 H 08/20/20 10:19: WBC Cancelled, Hgb Cancelled, Hct Cancelled, Plt Count Cancelled 08/20/20 10:19: Sodium Cancelled, Potassium Cancelled, BUN Cancelled, Creatinine Cancelled, Glucose Cancelled, Total Bilirubin Cancelled, AST Cancelled, ALT Cancelled, Alkaline Phosphatase Cancelled, Lipase Cancelled Assessment and Plan - Advance Directives Does patient have a Living Will: No Does patient have a Durable POA for Healthcare: No Physician Review Additional Text: Acute CVA (8 mm infarction of left internal capsule/thalamus) HLD GERD aspirin, plavix, folic acid carotid U/S, echo, MRI ordered monitor on telemetry neurology consulted -recommend medical management check A1c, lipid panel bedside swallow eval allow for some permissive hypertension PT consulted pt reports bad side effects due to a "cholesterol pill" unsure which one. will start high dose statin for now VTE: Lovenox Code: full Dispo: anticipate dc home in 24 hrs, pending further workup / PT eval Time Spent Managing Pts Care (In Minutes): 60
[2020-08-20] MEDS: ENOXAPARIN 40 MG/0.4 ML SQ SCH (17:00)
[2020-08-20 17:24] VITALS: BMI 26.2
[2020-08-20] MEDS ORDERED: ENOXAPARIN 40 MG/0.4 ML SQ ONE (17:55)
--- NOTE | 2020-08-20 19:21 | RAD REPORT ---
EXAM DESCRIPTION: MRI - Brain W/Wo Cont - 08/20/2020 6:57 pm CLINICAL HISTORY: acute CVA COMPARISON: MRA Head Wo Cont dated 08/20/2020; Head angio dated 08/20/2020; Ct Stroke Brain Wo Cont da perri 08/20/2020 TECHNIQUE: Multi-sequence, multiplanar MR imaging of the brain was performed with contrast. FINDINGS: No intracranial hemorrhage, hydrocephalus, or extra-axial fluid collection. No edema or sh ift of midline structures. No intracranial mass. 10 mm nonhemorrhagic acute infarct is present heel reducer ior left internal capsule. No additional acute CVA seen.. The midline structures are normally formed. Mastoid air cells and paranasal sinuses are clear. Post-contrast images show no abnormal enhancement to suggest tumor or infection. IMPRESSION: 10 mm nonhemorrhagic acute CVA posterior left internal capsule.
--- NOTE | 2020-08-20 19:22 | RAD REPORT ---
EXAM DESCRIPTION: MRI - MRA Head Wo Cont - 08/20/2020 6:56 pm CLINICAL HISTORY: acute CVA CVA COMPARISON: Head angio dated 08/20/2020 FINDINGS: 3D noncontrast [id number] MR angiography of the [place] was performed. No aneurysm, flow-limiting stenosis or vascular malformation is seen. Forward flow seen in codominant vertebral arteries. The visualized dural venous sinuses appear patent. IMPRESSION: No significant flow abnormality of the [place] is identified.
--- NOTE | 2020-08-20 19:24 | RAD REPORT ---
EXAM DESCRIPTION: MRI - MRA Neck W/Wo Cont - 08/20/2020 6:57 pm CLINICAL HISTORY: acute CVA Headache, drowsiness COMPARISON: No comparisons FINDINGS: Contrast enhance 2D [id number] MR angiography of the neck vessels was performed. A left aortic arch is present. Both common carotid arteries and subclavian arteries are widely patent. No internal carotid artery st enosis is seen. Antegrade flow is seen in both vertebral arteries. IMPRESSION: No significant carotid stenosis is identified.
[2020-08-20] MEDS ORDERED: ATORVASTATIN 20 MG TAB PO SCH (21:00)
--- NOTE | 2020-08-20 21:41 | CON ---
Reason For Consultation: Consultation called because of stroke. History Of Present Illness: Ms. Tarango is a 65-year-old patient with no significant past medical history except for hypertension and gastroesophageal reflux disease, who comes in with right-sided we akness and numbness that began 12 hours before she came to the hospital. The patient's head CT scan was remarkable for 8 mm acute infarct in the left internal capsule thalamic region. Subsequent brain MRI identified the area as a 10 mm nonhemorrhagic stroke in the posterior limb of the left internal capsule. In the emergency room, her NIH stroke scale was 2. The patient's neck and head magnetic re sonance angiogram showed no significant occlusion in any of the intracranial or neck vessels. She wa s managed medically with aspirin, Plavix, folic acid, Lipitor 40 mg at night, and permissive hyperten camryn. In terms of the deficits, she has actually little right arm and leg weakness at 4+/5 proximall y and distally. Left side feels fully strong 5/5. Face is intact and swallowing and speech intact. Past Medical History: As indicated. Gastroesophageal reflux disease, dyslipidemia. Past Surgical History: Hysterectomy, neck surgery, cholecystectomy, umbilical hernia repair. Family History: Noncontributory. Social History: No alcohol, tobacco, or IV drug use. The patient lives at home with family. Review of Systems: Unless stated, review of systems is negative. Physical Examination: Vital Signs: Blood pressure 162/72, pulse 68, respiratory rate 16, temperature 97.3, oxygen saturati on 99% on room air, weight 130 pounds, height 4 feet 11 inches, BMI 26.3. General: Ms. Tarango is resting comfortably in bed. She is in no acute distress. HEENT: She is normocephalic, atraumatic. Sclerae anicteric. Oropharynx is pink and moist. Neck: Supple. Chest: Clear. Heart: Regular. Extremities: No edema or cyanosis. Neurological: She is alert and oriented to situation, place, and person. Follows commands appropria tely. She has no cranial nerve deficits on 2 through 12. On motor examination, subtle weakness in t he right upper and lower extremity of 4/5. Slight decreased light touch temperature in the right upp er and lower extremity compared to left side, otherwise intact. Coordination intact in upper and low er extremities. Reflexes symmetric in the upper and lower extremities. She will be ambulated with t gilson physical therapist. Laboratory Studies: Completely normal complete blood count with differential. Normal coagulation pa flaco. Chemistries remarkable for glucose of 213, calcium elevated at 10.4, chloride of 111, otherwise unremarkable. Assessment: Ms. Tarango is a 65-year-old patient with a left internal capsule stroke, likely relat ed to diabetes mellitus, dyslipidemia, hypertension, and she was not on aspirin. Plan: Aspirin, Plavix for at least 1 month, then aspirin only. Folic acid 1 mg daily. Continue sta tin as indicated. Mild permissive hypertension over the next week. The patient may be evaluated by Physical Therapy for stratification of inpatient or outpatient aggressive physical therapy to rehab h er stroke. The patient may be discharged once her carotid Dopplers and echocardiogram complete. She may follow up in Dr. Sylvester's clinic 1 month later. COLLETTE/OSMNAY Voice ID: [id number] Report ID: [id number]
[2020-08-21 06:03] LABS: Basophils % 0.5 % (0-1.3); Hematocrit 34.5 % (36.0-45.0); Lymphocytes % 39.9 % (15.3-44.8); MPV 8.7 fL (7.6-11.3); RBC Red Blood Cell Count 3.87 M/uL (3.86-4.86)
[2020-08-21] MEDS: ENOXAPARIN 40 MG/0.4 ML SQ SCH (08:09)
[2020-08-21 08:21] LABS: Albumin 3.8 g/dL (3.4-5.0); Bilirubin Total 0.5 mg/dL (0.2-1.0); Magnesium 2.5 mg/dL (1.8-2.4); Phosphorus 3.4 mg/dL (2.5-4.9); Potassium 3.7 mmol/L (3.5-5.1); Protein, Total 7.5 g/dL (6.4-8.2); T4,Total 8.4 ug/dL (4.8-13.9); Thyroid Stimulating Hormone 2.5 uIU/mL (0.360-3.740)
--- NOTE | 2020-08-21 08:38 | RAD REPORT ---
EXAM DESCRIPTION: US - CP - 08/21/2020 7:57 am CLINICAL HISTORY: acute CVA COMPARISON: MRA Neck W/Wo Cont dated 08/20/2020 TECHNIQUE: Real-time sonographic evaluation of bilateral carotid and vertebral systems was performed . Winston scale and Doppler interrogation were performed with waveform tracing bilaterally. FINDINGS: Normal high resistance waveforms are noted in both external carotid arteries. The common c arotid arteries and internal carotid arteries show normal low resistance waveforms. No significant plaque formation is seen. Peak systolic and end diastolic velocity values and the ICA/ CCA ratios are in the non-hemodynamically significant range. Bilateral common carotid artery tortuos ity noted. Antegrade flow seen in both vertebral arteries. Velocity values and ratios were recorded and are retained in the patient's imaging records. IMPRESSION: No significant atherosclerotic changes noted. No evidence of a hemodynamically significant stenosis.
[2020-08-21] MEDS ORDERED: FOLIC ACID 1 MG TABLET PO SCH (09:00)
[2020-08-21] MEDS ORDERED: ASPIRIN EC 81 MG TAB PO SCH (09:00)
[2020-08-21] MEDS ORDERED: CLOPIDOGREL 75 MG TABLET PO SCH (09:00)
[2020-08-21 10:16] VITALS: O2SAT 99
[2020-08-21] MEDS ORDERED: POTASSIUM CL SA 10 MEQ TAB PO ONE (11:00)
--- NOTE | 2020-08-21 16:44 | P.DS ---
Admission Date: 08/20/20 Discharge Date: 08/21/20 Disposition: DC HOME/HOME HEALTH CARE Discharge Condition: FAIR Reason for Admission: acute CVA Consultations: Neurology-Dr. Sylvester. - Problems (1) Acute CVA (cerebrovascular accident) Current Visit: Yes Status: Acute (2) Hyperlipidemia Current Visit: Yes Status: Acute (3) Hypertension Current Visit: Yes Status: Acute Brief History of Present Illness: 65-year-old woman with a history of hypertension, hyperlipidemia presented to the emergency department due to numbness feeling on her right side from face to toe toe and difficulty with walking. CT head done in the emergency department demonstrated an 8 mm acute CVA in the left internal capsule/thalamic region. Patient diagnosed with acute CVA and admitted for further management. Hospital Course: Patient placed under observation on the medical floor and started on aspirin and Plavix and statins. Her LDL checked was elevated to 112. Patient was seen and evaluated by neurology-Dr. Sylvester, echocardiogram was performed. Carotid Doppler done demonstrated no significant carotid artery stenosis. MRI of the brain done confirmed acute CVA in the left internal capsule. Patient has no motor deficit but has ataxic gait from incoordination. Patient seen by PT. She ambulated several feet with a walker. Patient recommended to ambulate with a walker for now. She will also benefit from home health for PT. Blood pressure was moderately elevated but stable. She had no arrhythmia. Neurology recommended permissive hypertension for the next 1 week. Vital Signs/Physical Exam: Temp Pulse Resp BP Pulse Ox 98 F 76 18 157/70 H 95 08/21/20 12:00 08/21/20 12:00 08/21/20 12:00 08/21/20 12:00 08/21/20 12:00 General: Alert, In no apparent distress, Oriented x3 HEENT: Mucous membr. moist/pink, EOMI, Sclerae nonicteric Neck: Supple Respiratory: Clear to auscultation bilaterally, Normal air movement Cardiovascular: No edema, Regular rate/rhythm, Normal S1 S2 Gastrointestinal: Normal bowel sounds, Soft and benign, Non-distended Musculoskeletal: No swelling Integumentary: No rashes Neurological: Normal speech, Normal strength at 5/5 x4 extr, Cranial nerves 3-12 intact, Abnormal gait Laboratory Data at Discharge: WBC 7.5 K/uL (4.3-10.9) 08/21/20 05:33 Hgb 12.2 g/dL (12.0-15.0) 08/21/20 05:33 Hct 34.5 % (36.0-45.0) L 08/21/20 05:33 Plt Count 242 K/uL (152-406) 08/21/20 05:33 PT 11.2 SECONDS (9.5-12.5) 08/20/20 11:32 INR 0.95 08/20/20 11:32 APTT 33.4 SECONDS (24.3-36.9) 08/20/20 11:32 Sodium 141 mmol/L (136-145) 08/21/20 05:33 Potassium 3.7 mmol/L (3.5-5.1) 08/21/20 05:33 BUN 10 mg/dL (7-18) 08/21/20 05:33 Creatinine 0.80 mg/dL (0.55-1.3) 08/21/20 05:33 Glucose 111 mg/dL (74-106) H 08/21/20 05:33 Phosphorus 3.4 mg/dL (2.5-4.9) 08/21/20 05:33 Magnesium 2.5 mg/dL (1.8-2.4) H 08/21/20 05:33 Total Bilirubin 0.5 mg/dL (0.2-1.0) 08/21/20 05:33 AST 20 U/L (15-37) 08/21/20 05:33 ALT 29 U/L (12-78) 08/21/20 05:33 Alkaline Phosphatase 83 U/L (45-117) 08/21/20 05:33 Triglycerides 229 mg/dL (<150) H 08/21/20 05:33 Cholesterol 205 mg/dL (<200) H 08/21/20 05:33 HDL Cholesterol 47 mg/dL (40-60) 08/21/20 05:33 Cholesterol/HDL Ratio 4.36 08/21/20 05:33 Lipase Cancelled 08/20/20 10:19 Home Medications: Hamer-3S/Dha/Epa/Fish Oil [Fish Oil 1,200 mg Softgel] 2 each PO DAILY 09/22/16 Albuterol Neb [Proventil 0.083% Neb Soln] 2.5 mg IH DAILY 04/27/20 Dexlansoprazole [Dexilant] 60 mg PO DAILY 04/27/20 Montelukast [Singulair*] 10 mg PO DAILY 04/27/20 Aspirin [Aspirin EC 81 MG] 81 mg PO DAILY #30 tablet. 08/21/20 Atorvastatin Calcium [Lipitor*] 40 mg PO BEDTIME #30 tab 08/21/20 Clopidogrel Bisulfate [Plavix*] 75 mg PO DAILY #30 tablet 08/21/20 Folic Acid 1 mg PO DAILY #30 tablet 08/21/20 New Medications: Aspirin [Aspirin EC 81 MG] 81 mg PO DAILY #30 tablet. Folic Acid 1 mg PO DAILY #30 tablet Atorvastatin Calcium [Lipitor*] 40 mg PO BEDTIME #30 tab Clopidogrel Bisulfate [Plavix*] 75 mg PO DAILY #30 tablet Diet: AHA Activity: Ad cristhian Followup: Velma Kunz DO [Primary Care Provider] - 1-2 Weeks Efren Sylvester MD [ASSOCIATE-ACTIVE - CAN ADMIT] - (within 1 month.)
[2020-08-21 17:10] VITALS: BP 146/67; TEMP 97.5
--- NOTE | 2020-08-22 06:13 | EKG ---
Test Date: 2020-08-20 Test Time: 11:48:24 Mechanical Unit Repairer: [place] MEASUREMENT RESULTS: Intervals: Rate: 67 RI: 140 QRSD: 88 QT: 402 QTc: 424 [place]: P: 32 RI: 140 QRS: -6 T: 37 INTERPRETIVE STATEMENTS: Normal sinus rhythm Septal infarct, age undetermined Abnormal ECG Compared to ECG 12/29/2018 14:56:17 Myocardial infarct finding now present Electronically Signed On 08-22-20 06:09:26 DATA SERVICES DEVELOPER by Manjit Pond
[2020-08-22] MEDS ORDERED: ALBUTEROL 2.5 MG/3 ML NEB SOL IH SCH (08:00)
--- NOTE | 2020-08-22 08:41 | ECHO ---
HEIGHT: 4 ft 11 in WEIGHT: 130 lb 0 oz DATE OF STUDY: 08/21/[address]: Jordan Flynn MD 2-DIMENSIONAL: YES M.MODE: YES DOPPLER: YES COLOR FLOW: YES TDS: NO PORTABLE: NO DEFINITY: NO BUBBLE STUDY: NO DIAGNOSIS: STROKE CARDIAC HISTORY: CATHERIZATION: NO SURGERY: NO PROSTHETIC VALVE: NO PACEMAKER: NO MEASUREMENTS (cm) DIASTOLIC (NORMALS) SYSTOLIC (NORMALS) IVSd 0.9 (0.6-1.2) LA Diam 2.6 (1.9-4.0) LVEF 69% LVIDd 3.5 (3.5-5.7) LVIDs 2.2 (2.0-3.5) %FS 38% LVPWd 0.9 (0.6-1.2) Ao Diam 2.5 (2.0-3.7) 2 DIMENSIONAL ASSESSMENT: RIGHT ATRIUM: NORMAL LEFT ATRIUM: NORMAL RIGHT VENTRICLE: NORMAL LEFT VENTRICLE: NORMAL TRICUSPID VALVE: NORMAL MITRAL VALVE: NORMAL PULMONIC VALVE: NORMAL AORTIC VALVE: NORMAL PERICARDIAL EFFUSION: NONE AORTIC ROOT: NORMAL LEFT VENTRICULAR WALL MOTION: NORMAL DOPPLER/COLOR FLOW: NORMAL COMMENTS: NORMAL 2D ECHOCARDIOGRAM WITH DOPPLER. NO WALL MOTION ABNORMALITY. NO VEGETATION. TECHNOLOGIST: Obi BOWENS
[2020-08-22] MEDS ORDERED: PANTOPRAZOLE 40MG TABLET PO SCH (09:00)
[2020-08-22] MEDS ORDERED: MONTELUKAST 10 MG TAB PO SCH (09:00)
[2020-08-22] MEDS ORDERED: HOME MED 1 EA UNK (Dexlansoprazole [Dexilant] 30 MG Cap.Dr.Bp) PO SCH (09:00)
== END 2020-08-21 19:15 | disposition home or self-care (01) ==
LOC: ER 10:15 → ERHOLD 15:04 → 2ND 21:00
PROVIDERS: ADMIT Hospitalist; ATTEND Internal Medicine
DX: I63.9 Cerebral infarction, unspecified (principal); E78.5 Hyperlipidemia, unspecified; I10 Essential (primary) hypertension; K21.9 Gastro-esophageal reflux disease without esophagitis; R29.702 NIHSS score 2; Z20.822 Contact with and (suspected) exposure to COVID-19; R94.31 Abnormal electrocardiogram [ECG] [EKG]
CPT/HCPCS: 96365; 93005; 93306; 85025 ×2; 80048; 36415; 83735; 84100; 85610; 80061; 85730; 84436; 84443; 80053; 70496; 70450; 71045; 93880; 70553; 70544; 70549; 92610; 97112; 97116 ×2; 97161; 94760 ×3; 99285; U0003; Q9967; A9577; J1650 ×2; G0378 ×3

== ENCOUNTER 2020-09-21 08:36 | Day surgery (SDC) | payer OTHER ==
[2020-09-21] MEDS ORDERED: PAMIDRONATE 90 MG in NA CHLORIDE 0.9% 500 ML IV ONE (09:00)
[2020-09-21 09:28] VITALS: BP 140/66; TEMP 97.4; O2SAT 98
[2020-09-21 09:29] VITALS: BMI 26.9
== END 2020-09-21 13:53 | disposition home or self-care (01) ==
LOC: DS 08:36
PROVIDERS: ATTEND Internal Medicine Nephrology
DX: E83.52 Hypercalcemia (principal)
CPT/HCPCS: 96365; 96366; J2430; J7040

== ENCOUNTER 2020-12-28 07:44 | Day surgery (SDC) | payer OTHER ==
[2020-12-28] MEDS ORDERED: PAMIDRONATE 90 MG in NA CHLORIDE 0.9% 500 ML IV ONE (08:00)
[2020-12-28 09:12] VITALS: BP 127/52; TEMP 97.1; O2SAT 98; BMI 26.2
== END 2020-12-28 13:30 | disposition home or self-care (01) ==
LOC: DS 07:44
PROVIDERS: ATTEND Internal Medicine Nephrology
DX: E83.52 Hypercalcemia (principal)
CPT/HCPCS: 96365; 96366; J2430; J7040

== ENCOUNTER 2021-01-21 16:47 | Emergency (ER) | payer OTHER ==
--- NOTE | 2021-01-21 19:07 | RAD REPORT ---
EXAM DESCRIPTION: RAD - Hand Left 3 View - 01/21/2021 6:32 pm CLINICAL HISTORY: PAIN COMPARISON: None. FINDINGS: No fracture, dislocation or periosteal reaction noted. No foreign body or other soft tissu e abnormality. IMPRESSION: Negative left hand examination.
--- NOTE | 2021-01-21 19:09 | RAD REPORT ---
EXAM DESCRIPTION: RAD - Foot Right 3 View - 01/21/2021 6:32 pm CLINICAL HISTORY: PAIN COMPARISON: No comparisons FINDINGS: No fracture, dislocation or periosteal reaction. Bunion deformity is seen with hypertrophy along the medial margin first metatarsal head. No significant valgus angulation at the MTP joint. No acute bone or joint finding seen. Minimal calcification of the distal Achilles tendon. No plantar sp ur. No air or foreign body in the soft tissues. IMPRESSION: Degenerative changes are present near the first MTP joint. No acute or destructive bone or joint process.
[2021-01-21] MEDS ORDERED: ACETAMINOPHEN 500 MG TAB ONE (20:31)
--- NOTE | 2021-01-21 22:56 | ER ---
Nurse's Notes [facility] Name: Charisse Tarango Age: 65 yrs Sex: Female : 1955 Arrival Date: 01/21/2021 Time: 16:52 Bed 8 Private MD: Diagnosis: Pain in left hand;Pain in right foot Presentation: 01/21 17:06 Chief complaint: Patient states: Bruising and swelling noted to R foot. Pt reports that ss from a previous stroke she does not have sensation and did not have a fall so she does not know what happened. Small bruising noticed to L palm of hand as well. Coronavirus screen: Client denies travel out of the [place] in the last 14 days. Ebola Screen: Patient denies exposure to infectious person. Patient denies travel to an Ebola-affected area in the 21 days before illness onset. Initial Sepsis Screen: Does the patient meet any 2 criteria? No. Patient's initial sepsis screen is negative. Does the patient have a suspected source of infection? No. Patient's initial sepsis screen is negative. Risk Assessment: Do you want to hurt yourself or someone else? Patient reports no desire to harm self or others. Onset of symptoms was January 18, 2021. 17:06 Method Of Arrival: Ambulatory ss 17:06 Acuity: SANDRA 3 ss Historical: - Allergies: 17:08 Codeine; ss 17:08 PENICILLINS; ss 17:08 Sulfa (Sulfonamide Antibiotics); ss - PMHx: 17:08 GERD; Hypertension; ss - PSHx: 17:08 Hysterectomy; neck; ss - Immunization history:: Adult Immunizations up to date. - Social history:: Smoking status: Patient denies any tobacco usage or history of. Screenin:21 Abuse screen: Denies threats or abuse. Denies injuries from another. Nutritional ph screening: No deficits noted. Tuberculosis screening: No symptoms or risk factors identified. Fall Risk None identified. Assessment: 18:20 General: Appears in no apparent distress. Behavior is calm, cooperative, appropriate ph for age. Pain: Denies pain. Neuro: Level of Consciousness is awake, alert, obeys commands, Oriented to person, place, time, situation. Cardiovascular: Capillary refill < 3 seconds in bilateral fingers Patient's skin is warm and dry. Respiratory: Airway is patent Respiratory effort is even, unlabored, Respiratory pattern is regular, symmetrical. Derm: Skin is intact, Skin is pink, warm \T\ dry. Bruising that is on left hand and right foot. Musculoskeletal: Circulation, motion, and sensation intact. Range of motion: intact in all extremities, Swelling present in right foot. 19:00 Reassessment: Patient appears in no apparent distress at this time. Patient and/or jb4 family updated on plan of care and expected duration. Pain level reassessed. Patient is alert, oriented x 3, equal unlabored respirations, skin warm/dry/pink. 20:30 Reassessment: Patient appears in no apparent distress at this time. Patient and/or jb4 family updated on plan of care and expected duration. Pain level reassessed. Patient is alert, oriented x 3, equal unlabored respirations, skin warm/dry/pink. 21:30 Reassessment: Patient appears in no apparent distress at this time. Patient and/or jb4 family updated on plan of care and expected duration. Pain level reassessed. Patient is alert, oriented x 3, equal unlabored respirations, skin warm/dry/pink. 22:30 Reassessment: Patient appears in no apparent distress at this time. Patient and/or jb4 family updated on plan of care and expected duration. Pain level reassessed. Patient is alert, oriented x 3, equal unlabored respirations, skin warm/dry/pink. 23:30 Reassessment: Patient appears in no apparent distress at this time. Patient and/or jb4 family updated on plan of care and expected duration. Pain level reassessed. Patient is alert, oriented x 3, equal unlabored respirations, skin warm/dry/pink. Vital Signs: 17:06 BP 153 / 61; Pulse 66; Resp 16; Temp 97.8(TE); Pulse Ox 98% on R/A; Weight 58.97 kg; ss Height 4 ft. 11 in. (149.86 cm); Pain 0/10; 20:30 BP 128 / 59; Pulse 50; Resp 18; Pulse Ox 98% on R/A; jb4 21:00 BP 155 / 59; Pulse 51; Resp 16; Pulse Ox 98% on R/A; jb4 23:00 BP 128 / 53; Pulse 54; Resp 16; Pulse Ox 98% on R/A; jb4 17:06 Body Mass Index 26.26 (58.97 kg, 149.86 cm) ED Course: 16:52 Patient arrived in ED. ds1 17:08 Triage completed. ss 17:08 Arm band placed on right wrist. ss 18:07 Colt Hernandez PA is PHCP. cp 18:07 Colt Dong MD is Attending Physician. cp 18:20 Rosario Ni, RN is Primary Nurse. ph 18:21 Patient has correct armband on for positive identification. Bed in low position. Call ph light in reach. Side rails up X 1. Pulse ox on. NIBP on. Door closed. Noise minimized. Warm blanket given. 18:33 Foot Right 3 View XRAY In Process Unspecified. EDMS 18:33 Hand Left 3 View XRAY In Process Unspecified. EDMS 21:30 US Extremity Venous Unilateral Ltd In Process Unspecified. EDMS 21:30 UPPER EXTREMITY VENOUS UNILATE In Process Unspecified. EDMS 23:31 No provider procedures requiring assistance completed. Patient did not have IV access jb4 during this emergency room visit. Administered Medications: 20:03 CANCELLED (Physician Discretion): Digoxin 0.5 mg IVP once cp 20:33 Drug: Tylenol 1000 mg Route: PO; jb4 21:00 Follow up: Response: No adverse reaction; Marked relief of symptoms; Pain is decreased jb4 Outcome: 22:55 Discharge ordered by . cp 23:31 Discharged to home ambulatory. jb4 23:31 Condition: stable 23:31 Discharge instructions given to patient, Instructed on discharge instructions, follow up and referral plans. medication usage, Demonstrated understanding of instructions, follow-up care, medications, Prescriptions given X 1. 23:32 Patient left the ED. jb4 Signatures: Dispatcher [employer] [facility] Tressa Marin ds1 Shirley Rolle RN RN Rosario Ni RN RN Colt Hernandez PA PA cp Michelle Maria RN RN hb Bryson, James, RN RN jb4 Corrections: (The following items were deleted from the chart) 18:56 18:55 Inserted saline lock: 20 gauge in right antecubital area, using aseptic hb technique. Blood collected. hb
--- NOTE | 2021-01-21 22:56 | EDPHYS ---
Physician Documentation [facility] Name: Charisse Taragno Age: 65 yrs Sex: Female : 1955 Arrival Date: 01/21/2021 Time: 16:52 Bed 8 Private MD: ED Physician Colt Dong HPI: 01/21 18:15 This 65 yrs old Female presents to ER via Ambulatory with complaints of Foot cp Pain, Hand Bruise. 18:15 The patient presents with pain, that is acute. cp 18:15 The complaints affect the dorsum of right foot. Context: resulted from an unknown cp cause, the patient can fully bear weight. 18:15 The patient or guardian reports pain, swelling, tenderness. The complaints affect the cp anderson side left hand. 18:15 Context: resulted from an unknown cause. Onset: The symptoms/episode began/occurred cp noticed today. Treatment prior to arrival includes: no previous treatment. Historical: - Allergies: 17:08 Codeine; ss 17:08 PENICILLINS; ss 17:08 Sulfa (Sulfonamide Antibiotics); ss - PMHx: 17:08 GERD; Hypertension; ss - PSHx: 17:08 Hysterectomy; neck; ss - Immunization history:: Adult Immunizations up to date. - Social history:: Smoking status: Patient denies any tobacco usage or history of. ROS: 18:45 Eyes: Negative for injury, pain, redness, and discharge. cp 18:45 Constitutional: Negative for fever. 18:45 Cardiovascular: Negative for chest pain. 18:45 Respiratory: Negative for cough, shortness of breath. 18:45 Abdomen/GI: Negative for abdominal pain. 18:45 MS/extremity: Positive for ecchymosis, pain, swelling, tenderness, of the left hand and dorsum of right foot, Negative for injury or acute deformity, decreased range of motion, paresthesias. 18:45 Skin: Negative for cellulitis, rash. 18:45 Neuro: Negative for altered mental status, headache, weakness. 18:45 All other systems are negative. Exam: 18:50 Constitutional: The patient appears in no acute distress, alert, awake, non-toxic, well cp developed, well nourished. 18:50 Head/Face: Normocephalic, atraumatic. cp 18:50 Chest/axilla: Inspection: normal. 18:50 Cardiovascular: Rate: normal, Rhythm: regular. 18:50 Respiratory: the patient does not display signs of respiratory distress, Respirations: normal, no use of accessory muscles, no retractions, labored breathing, is not present. 18:50 Abdomen/GI: Exam negative for discomfort, distension, guarding, Inspection: abdomen appears normal. 18:50 Musculoskeletal/extremity: Extremities: grossly normal except: noted in the dorsum of right foot: ecchymosis, pain, swelling, tenderness, There is no evidence of deformity, noted in the left hand anderson side: ecchymosis, swelling, tenderness, no evidence of decreased ROM, deformity, Pulses: noted to be 2+ in the right dorsalis pedis artery and left radial artery. 18:50 Skin: cellulitis, is not appreciated, no rash present. Vital Signs: 17:06 BP 153 / 61; Pulse 66; Resp 16; Temp 97.8(TE); Pulse Ox 98% on R/A; Weight 58.97 kg; ss Height 4 ft. 11 in. (149.86 cm); Pain 0/10; 20:30 BP 128 / 59; Pulse 50; Resp 18; Pulse Ox 98% on R/A; jb4 21:00 BP 155 / 59; Pulse 51; Resp 16; Pulse Ox 98% on R/A; jb4 23:00 BP 128 / 53; Pulse 54; Resp 16; Pulse Ox 98% on R/A; jb4 17:06 Body Mass Index 26.26 (58.97 kg, 149.86 cm) ss MDM: 18:09 Patient medically screened. cp 19:00 Differential diagnosis: closed fracture, contusion, DVT, cellulitis. cp 22:55 Data reviewed: vital signs, nurses notes, radiologic studies, plain films, ultrasound, cp and as a result, I will discharge patient. 22:55 Counseling: I had a detailed discussion with the patient and/or guardian regarding: the cp historical points, exam findings, and any diagnostic results supporting the discharge/admit diagnosis, radiology results, the need for outpatient follow up, a family practitioner, to return to the emergency department if symptoms worsen or persist or if there are any questions or concerns that arise at home. 01/21 18:10 Order name: Foot Right 3 View XRAY; Complete Time: 19:32 cp 01/21 19:32 Interpretation: Report reviewed. cp 01/21 18:10 Order name: Hand Left 3 View XRAY; Complete Time: 19:32 cp 01/21 19:33 Interpretation: Report reviewed. cp 01/21 20:04 Order name: US Extremity Venous Unilateral Ltd cp 01/21 20:16 Order name: UPPER EXTREMITY VENOUS UNILATE EDMS 01/21 19:33 Order name: Eugene Wrap: left hand and right foot; Complete Time: 20:33 cp Administered Medications: 20:03 CANCELLED (Physician Discretion): Digoxin 0.5 mg IVP once cp 20:33 Drug: Tylenol 1000 mg Route: PO; jb4 21:00 Follow up: Response: No adverse reaction; Marked relief of symptoms; Pain is decreased jb4 Disposition: 01/22 07:21 Co-signature as Attending Physician, Colt Dong MD I agree with the assessment and jaime plan of care. Disposition: 01/21/21 22:55 Discharged to Home. Impression: Pain in left hand, Pain in right foot. - Condition is Stable. - Discharge Instructions: Foot Pain, Hand Pain. - Prescriptions for Diclofenac Sodium 75 mg Oral Tablet, Delayed Release (E.C.) - take 1 tablet by ORAL route 2 times per day; 20 tablet. - Medication Reconciliation Form, Thank You Letter, Antibiotic Education, Prescription Opioid Use form. - Follow up: Private Physician; When: 2 - 3 days; Reason: Recheck today's complaints. - Problem is new. - Symptoms have improved. Signatures: Dispatcher [employer] [facility] Colt Dong MD MD cha Smirch, Shelby, RN RN Colt Hernandez PA PA cp Bryson, James, DARRYL RN jb4 Corrections: (The following items were deleted from the chart) 01/21 20:03 19:37 Digoxin 0.5 mg IVP once ordered. cp cp 20:16 20:05 Extremity Venous Uni Ltd+[email or web address].RAD.BRZ ordered. [facility] 23:32 22:55 01/21/2021 22:55 Discharged to Home. Impression: Pain in left hand; Pain in right jb4 foot. Condition is Stable. Forms are Medication Reconciliation Form, Thank You Letter, Antibiotic Education, Prescription Opioid Use. Follow up: Private Physician; When: 2 - 3 days; Reason: Recheck today's complaints. Problem is new. Symptoms have improved. cp
[2021-01-21 23:37] VITALS: TEMP 97.8; O2SAT 98
[2021-01-21 23:41] VITALS: BP 128/53
--- NOTE | 2021-01-22 06:47 | RAD REPORT ---
EXAM DESCRIPTION: US - UPPER EXTREMITY VENOUS UNILATE - 01/21/2021 9:30 pm CLINICAL HISTORY: Left arm pain and swelling Preliminary findings provided at the time of the study. COMPARISON: None. TECHNIQUE: Real-time sonographic evaluation of the left upper extremity deep venous systems was perf ormed. FINDINGS: Normal compressibility, flow augmentation, phasic flow and spontaneous flow are identified in the left upper extremity deep venous system. No intraluminal filling defects seen. Internal jugul ar and subclavian veins are normal as well. IMPRESSION: No DVT in the left upper extremity.
--- NOTE | 2021-01-22 10:17 | RAD REPORT ---
EXAM DESCRIPTION: US - Extremity Venous Uni Ltd - 01/21/2021 9:30 pm CLINICAL HISTORY: Pain;Swelling Extremity Venous Uni Ltd. COMPARISON: None. TECHNIQUE: Survey ultrasound imaging of the deep venous system of right lower extremity was performe d including color and spectral Doppler evaluation with leather goods sales representative images obtained. Segmental veno us compression and calf vein augmentation were performed. FINDINGS: Common femoral vein: Patent without thrombus. Normal respiratory phasicity is indirect e vidence of central patency. Cephalad greater saphenous vein: Patent without thrombus. Normal respiratory phasicity is indirect evidence of central patency. Cephalad profunda femoral vein: Patent without thrombus. Normal response to augmentation. Femoral vein: A catheter is seen in the mid and distal femoral vein. The vein is compressible, and co carlos a flow is identified. No definite thrombus. Popliteal vein: Patent without thrombus. Calf veins: Patent without thrombus. IMPRESSION: 1. No definite right lower extremity deep venous thrombosis. 2. Right femoral venous catheter. Electronically signed by: Ally Addison MD 01/21/2021 10:05 PM CDT Due to temporary technical issues with the PACS/Fluency reporting system, reports are being signed by the in house radiologist without review as a courtesy to ensure prompt reporting. The interpreting r adiologist is fully responsible for the content of the report.
== END 2021-01-21 23:32 | disposition home or self-care (01) ==
LOC: ER 16:47
DX: M79.671 Pain in right foot (principal); I10 Essential (primary) hypertension; Z88.0 Allergy status to penicillin; Z88.2 Allergy status to sulfonamides; Z88.5 Allergy status to narcotic agent
CPT/HCPCS: 93971; 99284

== ENCOUNTER 2024-11-16 15:50 | Emergency (ER) | payer OTHER ==
[2024-11-16 16:56] LABS: Specific Gravity 1.008 (1.005-1.030); Urine Bilirubin NEGATIVE (Negative); Urine Blood Negative (Negative); Urine Clarity Clear (Clear); Urine Color Colorless (Yellow); Urine Glucose NEGATIVE (Negative); Urine Ketones NEGATIVE (Negative); Urine Microscopic Reflex YN NO UMIC; Urine Nitrite NEGATIVE (Negative); Urine Protein NEGATIVE (Negative); Urine Urobilinogen Normal (Normal); Urine pH 6.5 (5.0-7.0)
[2024-11-16 16:58] LABS: Absolute Lymphocytes (CBC) 2.2 K/uL (0.7-4.9); Absolute Monocytes 0.3 K/uL (0.1-1.3); Absolute Neutrophil 2.4 K/uL (1.8-8.0); Basophils % 0.7 % (0-1.3); Eosinophils % 0.7 % (0-4.4); Hematocrit 34.7 % (36.0-45.0); Hemoglobin 12.3 g/dL (12.0-15.0); Lymphocytes % 44.6 % (15.3-44.8); MCH 32.6 pg (27.0-35.0); MCHC 35.3 g/dL (32.0-36.0); MCV 92.4 fL (80-100); MPV 8.4 fL (7.6-11.3); Monocytes % 5.9 % (3.3-12.3); Neutrophils % 48.1 % (41.7-73.7); Nucleated Red Blood Cells % 0.1 % (0-0); Platelets 182 thou/uL (152-406); RBC Red Blood Cell Count 3.75 M/uL (3.86-4.86); Red Cell Distribution Width 13.6 % (12.1-15.2)
[2024-11-16 17:02] LABS: PT Prothrombin Time 11.8 SECONDS (10-13.0); Protime INR 1.04
[2024-11-16 17:16] LABS: ALT/SGPT 25 U/L (13-56); AST/SGOT 19 U/L (15-37); Albumin 3.9 g/dL (3.4-5.0); Alkaline Phosphatase 66 U/L (45-117); BUN Blood Urea Nitrogen 11 mg/dL (7-18); Bicarbonate 25 mEq/L (21-32); Bilirubin Total 0.4 mg/dL (0.2-1.0); Globulin 3.8 g/dL (2.3-3.5); Glomerular Filtration Rate 88 ml/min (=/>90); Glucose Level 95 mg/dL (74-106); Magnesium 2.1 mg/dL (1.6-2.4); Protein, Total 7.7 g/dL (6.4-8.2); Sodium Level 137 mEq/L (136-145); Troponin High Sensitivity 3.7 pg/mL (<58.9)
[2024-11-16 17:23] LABS: Bilirubin Direct < 0.2 mg/dL (0-0.2); Bilirubin Indirect, Calculated 0.2 mg/dL (0.2-0.8)
--- NOTE | 2024-11-16 18:01 | RAD REPORT ---
EXAM: CT brain without contrast HISTORY: Dizziness;Headache;Pain COMPARISON: None TECHNIQUE: Multiple contiguous axial images were obtained and a CT of the brain without contrast. Sag ittal and coronal reformats were performed. FINDINGS: No evidence of hydrocephalus, intracranial hemorrhage, or extra-axial fluid collection. The brain is normal in morphology. The calvarium is intact. The visualized paranasal sinuses and mastoid air cells are essentially clear . IMPRESSION: No evidence of acute intracranial abnormality. EXAM: CT of the cervical spine without contrast HISTORY: Dizziness;Headache;Pain COMPARISON: None TECHNIQUE: Multiple contiguous axial images were obtained in a CT of the cervical spine without contr ast. Sagittal and coronal reformats were performed. FINDINGS: The vertebral bodies demonstrate normal height and alignment. 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 Up to moderate degenerative changes contributing to the degrees of neural foraminal narrowing most pronounced at C3- 4, C4-5, and C6-7 bilaterally. No evidence of acute fracture or subluxation.. No prevertebral soft tissue swelling is seen. The posterior facets are well aligned. Normal alignment of the skull base with the cervical spine is seen. The lung apices are unremarkable. IMPRESSION: No evidence of acute osseous abnormality of the cervical spine. Multilevel degenerative changes as ab ove.
--- NOTE | 2024-11-16 19:11 | RAD REPORT ---
EXAMINATION: ONE VIEW CHEST XR CLINICAL INDICATION: Female, 69 years old.,PAIN TECHNIQUE: Frontal chest projection is submitted. Examination is limited by patient positioning and t echnique. COMPARISON: 08/20/2020 FINDINGS: The lungs are well inflated and clear. Diffuse hyperlucency again seen. No pneumothorax or sizable ef fusion. The heart is normal in size. Mediastinal contours are unremarkable. IMPRESSION: No acute intrathoracic abnormalities.
--- NOTE | 2024-11-16 19:14 | RAD REPORT ---
EXAMINATION: XR RIGHT SHOUDLER CLINICAL INDICATION: Female, 69 years old. PAIN RIGHT TECHNIQUE:Two view radiograph of the right shoulder were obtained. COMPARISON: No prior exam. FINDINGS: No acute bone or joint abnormality detected. Moderate glenohumeral and AC joint degenerativ e changes. Subacromial space narrowing with remodeling of the acromial undersurface, may relate to chronic rotator cuff changes. IMPRESSION: No acute osseous abnormalities. Chronic findings as above..
--- NOTE | 2024-11-16 19:38 | EDPHYS ---
Physician Documentation [facility] Name: Charisse Tarango Age: 69 yrs Sex: Female : 1955 Arrival Date: 11/16/2024 Time: 15:50 Bed 9 Private MD: ED Physician Kun Robles HPI: 11/16 20:12 This 69 yrs old Female presents to ER via Ambulatory with complaints of Head kb Injury-Adult. 20:12 patient is a 69-year-old female who presents for dizziness and headache after head kb injury that occurred yesterday. States she was bent down in the kitchen stood up, lost her balance and fell back hitting her head, right shoulder on the stove. Denies LOC. Was seen in the clinic today and they recommended that she come to the ER for further evaluation and CAT scan because patient has a history of stroke.. Historical: - Allergies: 16:04 Codeine; iw 16:04 PENICILLINS; iw 16:04 Sulfa (Sulfonamide Antibiotics); iw - PMHx: 16:04 GERD; Hypertension; iw 16:05 Hypercholesterolemia; CVA; iw - PSHx: 16:05 Cholecystectomy; neck; hernia; bladder suspension; iw - Immunization history:: Adult Immunizations. - Infectious Disease History:: Denies. - Social history:: Smoking status: Patient denies any tobacco usage or history of. ROS: 20:10 Constitutional: As per HPI kb Exam: 20:11 Constitutional: This is a well developed, well nourished patient who is awake, alert, kb and in no acute distress. Head/Face: Normocephalic, atraumatic. Eyes: Pupils equal round and reactive to light, extra-ocular motions intact. Lids and lashes normal. Conjunctiva and sclera are non-icteric and not injected. Cornea within normal limits. Periorbital areas with no swelling, redness, or edema. ENT: Moist Mucous membranes Cardiovascular: Regular rate Respiratory: Respirations even and unlabored. No increased work of breathing. Talking in full sentences Abdomen/GI: Soft, non-tender. No distention Back: No spinal tenderness. No costovertebral tenderness. Full range of motion. Skin: Warm, dry with normal turgor. Normal color. Neuro: Awake and alert, GCS 15, oriented to person, place, time, and situation. 20:11 Musculoskeletal/extremity: Extremities: grossly normal except: noted in the anterior aspect of right shoulder: pain, tenderness, ROM: limited active range of motion due to pain, Circulation is intact in all extremities. Sensation intact. 20:11 ECG was reviewed by the Attending Physician. Vital Signs: 16:02 BP 152 / 68; Pulse 58; Resp 16; Temp 98.1; Pulse Ox 99% on R/A; Weight 55.34 kg; Height iw 4 ft. 11 in. ; Pain 10/10; 17:40 BP 168 / 57 Supine; Pulse 56; ll1 17:42 BP 188 / 92 Sitting; Pulse 61; ll1 17:44 BP 189 / 100 Standing; Pulse 64; ll1 19:04 BP 161 / 73; ll1 20:16 BP 148 / 67; Pulse 81; Resp 17; Temp 98.5; Pulse Ox 98% ; Pain 2/10; mb12 16:02 Body Mass Index 24.64 (55.34 kg, 149.86 cm) iw 16:02 Pain Scale: Adult iw 20:16 Pain Scale: Adult mb12 Kylie Coma Score: 16:02 Eye Response: spontaneous(4). Motor Response: obeys commands(6). Verbal Response: iw oriented(5). Total: 15. 20:10 Eye Response: spontaneous(4). Motor Response: obeys commands(6). Verbal Response: kb oriented(5). Total: 15. MDM: 15:55 Medical Screening Exam initiated kb 20:10 Differential diagnosis: Hematoma on Intracranial bleed- Concussion. Data reviewed: vital signs, nurses notes. Historians other than the Patient: Family Member: Family member. Counseling: I had a detailed discussion with the patient and/or guardian regarding the historical points, exam findings, and any diagnostic results supporting the discharge/admit diagnosis, lab results, radiology results, the need for outpatient follow up, a family practitioner, to return to the emergency department if symptoms worsen or persist or if there are any questions or concerns that arise at home. 11/16 16:06 Order name: Basic Metabolic Panel; Complete Time: 17:30 kb 11/16 16:06 Order name: CBC with Diff; Complete Time: 17:22 kb 11/16 16:06 Order name: Hepatic Function; Complete Time: 17:30 kb 11/16 16:06 Order name: Magnesium; Complete Time: 17:30 kb 04 16:06 Order name: Protime (+inr); Complete Time: 17:05 kb 04 16:06 Order name: Ptt, Activated; Complete Time: 17:05 kb 04 16:06 Order name: Troponin High Sensitivity; Complete Time: 17:30 kb 04 16:06 Order name: Urinalysis w/ reflexes; Complete Time: 17:00 kb 04 16:06 Order name: CT Head C Spine; Complete Time: 18:03 kb 04 16:06 Order name: Chest Single View XRAY; Complete Time: 19:16 kb 11/16 16:06 Order name: Shoulder Right (2 View) XRAY; Complete Time: 19:16 kb 11/16 16:06 Order name: EKG; Complete Time: 16:06 kb 04 16:06 Order name: Cardiac monitoring; Complete Time: 17:07 kb 11/16 16:06 Order name: EKG - Nurse/Tech; Complete Time: 17:07 kb 11/16 16:06 Order name: IV Saline Lock; Complete Time: 17:07 kb 04 16:06 Order name: Labs collected and sent; Complete Time: 17:07 kb 11/16 16:06 Order name: NPO; Complete Time: 17:07 kb 11/16 16:06 Order name: O2 Per Protocol; Complete Time: 17:07 kb 11/16 16:06 Order name: O2 Sat Monitoring; Complete Time: 17:08 kb 04 16:06 Order name: Orthostatics; Complete Time: 17:49 kb EC:11 Rate is 51 beats/min. Rhythm is regular. QRS [place] is Normal. [place] interval is normal at kb 132 msec. QRS interval is normal at 80 msec. QT interval is normal at 418 msec. Administered Medications: No medications were administered Disposition: 21:49 I was immediately available on-site in the Emergency Department for consultation in the tn3 care of the patient. Disposition Summary: 11/16/24 19:38 Discharge Ordered Notes: Location: Home kb Condition: Stable kb Diagnosis - Unspecified injury of head, initial encounter kb Followup: kb - With: Emergency Department - When: As needed - Reason: Worsening of condition Followup: kb - With: Private Physician - When: 2 - 3 days - Reason: Recheck today's complaints, Continuance of care, Re-evaluation by your physician Discharge Instructions: - Discharge Summary Sheet kb - Concussion, Adult, [id number] kb - Head Injury, Adult, [id number] kb Forms: - Medication Reconciliation Form kb - Antibiotic Education kb - Prescription Opioid Use kb - Patient Portal Instructions kb - Leadership Thank You Letter kb Signatures: Dispatcher [employer] EDAna Hicks, JAE-C JAE-Jolly Gaming RN RN iw Kun Robels DO DO ms3 Corrections: (The following items were deleted from the chart) 20:12 20:11 Musculoskeletal/extremity: Extremities: grossly normal except: noted in the kb anterior aspect of right shoulder: ROM: limited active range of motion due to pain, Circulation is intact in all extremities. Sensation intact. kb
--- NOTE | 2024-11-16 19:38 | ER ---
Nurse's Notes [facility] Name: Charisse Tarango Age: 69 yrs Sex: Female : 1955 Arrival Date: 11/16/2024 Time: 15:50 Bed 9 Private MD: Diagnosis: Unspecified injury of head, initial encounter Presentation: 11/16 16:00 Chief complaint: Chief complaint: Patient states: was bending down last night, got iw dizzy and fell back, hit her head, now has a headache and increased dizziness and blurry vision, also feels pain in right shoulder from the fall. 16:02 Coronavirus screen: At this time, the client does not indicate any symptoms associated iw with coronavirus-19. Ebola Screen: No symptoms or risks identified at this time. Mechanism of Injury: resulted from a fall. Initial Sepsis Screen: Does the patient meet any 2 criteria? No. Patient's initial sepsis screen is negative. Does the patient have a suspected source of infection? No. Patient's initial sepsis screen is negative. Risk Assessment: Do you want to hurt yourself or someone else? Patient reports no desire to harm self or others. 16:02 Method Of Arrival: Ambulatory iw 16:02 Acuity: SANDRA 3 iw Historical: - Allergies: 16:04 Codeine; iw 16:04 PENICILLINS; iw 16:04 Sulfa (Sulfonamide Antibiotics); iw - PMHx: 16:04 GERD; Hypertension; iw 16:05 Hypercholesterolemia; CVA; iw - PSHx: 16:05 Cholecystectomy; neck; hernia; bladder suspension; iw - Immunization history:: Adult Immunizations. - Infectious Disease History:: Denies. - Social history:: Smoking status: Patient denies any tobacco usage or history of. Screenin:04 [facility] ED Fall Risk Assessment (Adult) History of falling in the last 3 months, ll1 including since admission No falls in past 3 months (0 pts) Confusion or Disorientation No (0 pts) Intoxicated or Sedated No (0 pts) Impaired Gait No (0 pts) Mobility Assist Device Used No (0 pt) Altered Elimination No (0 pt) Score/Fall Risk Level 0 - 2 = Low Risk Maintained a safe environment, Hourly rounding (assess needs \T\ fall precautionary measures) done. Abuse screen: Denies threats or abuse. Nutritional screening: No deficits noted. Tuberculosis screening: No symptoms or risk factors identified. Assessment: 17:35 Reassessment: No changes from previously documented assessment. Patient and/or family ll1 updated on plan of care and expected duration. Pain level reassessed. 17:50 General: Appears distressed, uncomfortable, Behavior is calm, cooperative, appropriate ll1 for age. Pain: Complains of pain in L sided head pain Quality of pain is described as aching, throbbing. Neuro: Reports dizziness, headache numbness in L face paresthesias a syncopal episode weakness. Musculoskeletal: Reports pain in R shoulder. 19:04 Reassessment: No changes from previously documented assessment. Patient and/or family ll1 updated on plan of care and expected duration. Pain level reassessed. Patient is alert, oriented x 3, equal unlabored respirations, skin warm/dry/pink. 20:17 Reassessment: Patient is alert, oriented x 3, equal unlabored respirations, skin mb12 warm/dry/pink. Patient denies pain at this time. Patient states feeling better. Patient states symptoms have improved. Vital Signs: 16:02 BP 152 / 68; Pulse 58; Resp 16; Temp 98.1; Pulse Ox 99% on R/A; Weight 55.34 kg; Height iw 4 ft. 11 in. ; Pain 10/10; 17:40 BP 168 / 57 Supine; Pulse 56; ll1 17:42 BP 188 / 92 Sitting; Pulse 61; ll1 17:44 BP 189 / 100 Standing; Pulse 64; ll1 19:04 BP 161 / 73; ll1 20:16 BP 148 / 67; Pulse 81; Resp 17; Temp 98.5; Pulse Ox 98% ; Pain 2/10; mb12 16:02 Body Mass Index 24.64 (55.34 kg, 149.86 cm) iw 16:02 Pain Scale: Adult iw 20:16 Pain Scale: Adult mb12 Kylie Coma Score: 16:02 Eye Response: spontaneous(4). Motor Response: obeys commands(6). Verbal Response: iw oriented(5). Total: 15. 20:10 Eye Response: spontaneous(4). Motor Response: obeys commands(6). Verbal Response: kb oriented(5). Total: 15. ED Course: 15:55 Patient arrived in ED. mr 15:55 [facility]C [facility] kb 15:55 Kun Robles DO is Attending Physician. kb 16:04 Triage completed. iw 16:06 Arm band placed on. iw 16:39 CT Head C Spine In Process Unspecified. EDMS 16:50 Initial lab(s) drawn, by me, sent to lab. Inserted saline lock: 22 gauge in left iw antecubital area, using aseptic technique. Blood collected. Flushed with 10 mL NS. 17:08 Basic Metabolic Panel Sent. cc6 17:08 CBC with Diff Sent. cc6 17:08 Hepatic Function Sent. cc6 17:08 Magnesium Sent. cc6 17:08 Troponin High Sensitivity Sent. cc6 17:23 Chest Single View XRAY In Process Unspecified. EDMS 17:23 Shoulder Right (2 View) XRAY In Process Unspecified. EDMS 17:35 Patient placed in an exam room, on a stretcher. ll1 17:35 Patient has correct armband on for positive identification. Provided Education on: ER ll1 procedures and process. 19:04 Cardiac monitoring not applicable on this patient. ll1 19:10 Diet: Patient given snack. Patient given water. ll1 20:04 ANGELA LAUGERRE, RN is Primary Nurse. dd2 20:17 No provider procedures requiring assistance completed. IV discontinued, intact, mb12 bleeding controlled, No redness/swelling at site. Pressure dressing applied. Administered Medications: No medications were administered Medication: 19:05 VIS not applicable for this client. ll1 Outcome: 19:38 Discharge ordered by MD. kb 20:17 Discharged to home ambulatory, with family, mb12 20:17 Condition: improved 20:17 Discharge instructions given to patient, family, Instructed on discharge instructions, follow up and referral plans. Demonstrated understanding of instructions, follow-up care, medications, 20:19 Patient left the ED. mb12 Signatures: Dispatcher [employer] EDMS Ana Nelson FNP-C SIGNALS OFFICER-Ckb Lisandra Hall, Reg Reg Jolly Mae, RN RN iw Ev Haque RN RN ll1 Tova Dumont cc6 ANGELA LAGURERE, DARRYL RN dd2 Maira Amos mb12 Corrections: (The following items were deleted from the chart) 16:04 16:00 Chief complaint: [facility]
[2024-11-16 20:48] VITALS: BP 148/67; TEMP 98.5; O2SAT 98
--- NOTE | 2024-11-17 11:47 | EKG ---
Test Date: 2024-11-16 Test Time: 17:04:42 Dental Therapist: DEBBIE MEASUREMENT RESULTS: Intervals: Rate: 51 [place]: 132 QRSD: 80 QT: 454 QTc: 418 [place]: P: 32 [place]: 132 QRS: 7 T: 82 INTERPRETIVE STATEMENTS: Sinus bradycardia with sinus arrhythmia Otherwise normal ECG Compared to ECG 08/20/2020 11:48:24 Sinus rhythm no longer present Myocardial infarct finding no longer present Electronically Signed On 11-17-24 11:46:11 CDT by Shayne Raygoza
== END 2024-11-16 20:19 | disposition home or self-care (01) ==
LOC: ER 15:50
DX: S09.90XA Unspecified injury of head, initial encounter (principal); W22.8XXA Striking against or struck by other objects, initial encounter
CPT/HCPCS: 36415; 70450; 71045; 72125; 80048; 80076; 81003; 83735; 84484; 85025; 85610; 85730; 93005